=== PATIENT | male | born 1950 | race Caucasian/White ===

== ENCOUNTER 2021-05-15 08:54 | Outpatient (CLI) | payer MEDICARE, SELFPAY | END 2021-05-15 08:55 | disposition home or self-care (01) | LOC: ANHAUDASC 08:56 | PROVIDERS: PCP Family Medicine; Visit Provider Otolaryngology | DX: H93.19 Tinnitus, unspecified ear (principal) | CPT/HCPCS: 92557; 92567 ==

== ENCOUNTER → 2022-04-10 13:31 | Outpatient (CLI) | payer MEDICARE, SELFPAY ==
--- NOTE | ~2022-04-10 | XR_ITS ---
XR knee RT min 4V 04/10/2022 14:11 Indication: Right knee pain Procedure: 4 views right knee Comparison: No prior studies for comparison. Findings: There is tricompartment osteoarthritis of the right knee, most severe in the medial compart ment. Small joint effusion. No acute fracture or traumatic malalignment. Impression: 1: Tricompartment osteoarthritis of the right knee, most severe in the medial compartment. 2: Small joint effusion. Reviewed, dictated and finalized at location A. Impression: 1: Tricompartment osteoarthritis of the right knee, most severe in the medial c ompartment. 2: Small joint effusion.
--- NOTE | ~2022-04-10 | XR_ITS ---
XR hand RT min 3V 04/10/2022 14:11 Indication: There is stiffness of the right hand Procedure: 3 views right hand Comparison: No prior studies for comparison. Findings: There is mild-moderate polyarticular osteoarthritis including the triscaphe joint, first CM C and MCP joints, multiple interphalangeal joints as well as the second and third MCP joints. No acut e fracture or traumatic malalignment. No focal soft tissue abnormality. No foreign bodies. No erosive changes. 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 Reviewed, dictated and finalized at location A. 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
--- NOTE | ~2022-04-10 | XR_ITS ---
XR hand LT min 3V 04/10/2022 14:11 Indication: Stiffness of the left hand Procedure: 3 views left hand Comparison: Left wrist series dated 05/02/2008 Findings: There is mild-moderate polyarticular osteoarthritis including the triscaphe joint, first CM C and MCP joints, multiple interphalangeal joints as well as the second and third MCP joints. No acut e fracture or traumatic malalignment. No focal soft tissue abnormality. No foreign bodies. No erosive changes. 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 Reviewed, dictated and finalized at location A. 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
== END ==
PROVIDERS: PCP Family Medicine; Visit Provider Family Medicine
DX: M19.041 Primary osteoarthritis, right hand (principal); M19.031 Primary osteoarthritis, right wrist; M19.042 Primary osteoarthritis, left hand; M19.032 Primary osteoarthritis, left wrist; M17.11 Unilateral primary osteoarthritis, right knee
CPT/HCPCS: 73130; 73564

== ENCOUNTER 2024-02-04 08:34 | Outpatient (CLI) | payer MEDICARE, SELFPAY ==
[2024-02-04 13:27] LABS: Hematocrit 43.9 % (42.0-52.0); Hemoglobin 14.4 g/dL (14.0-18.0); Mean Corpuscular HGB Conc 32.8 g/dl (32-36); Mean Corpuscular Hemoglobin 29.4 pg (26-34); Mean Corpuscular Volume 89.8 fl (80-100); Platelet Count Result 217 k/mm3 (150-375); Red Blood Count 4.89 M/mm3 (4.6-6.20); Red Cell Distribution Width 13.1 % (11.5-14.5); White Blood Count 5.7 K/mm3 (4.5-10.0)
[2024-02-04 14:01] LABS: LDL Cholesterol Direct 118 mg/dL
[2024-02-04 14:02] LABS: Prostate Specific Antigen 8.3 ng/mL (< OR = 4.0)
[2024-02-04 14:23] LABS: Alanine Aminotransferase 28 U/L (6-50); Albumin Level 4.4 g/dL (3.5-5.1); Alkaline Phosphatase 59 U/L (38-126); Anion Gap 7 mmol/L (4-12); Aspartate Amino Transferase 70 U/L (17-59); Bilirubin,Total 0.8 mg/dL (0.2-1.3); Blood Urea Nitrogen 14 mg/dL (9-20); Calcium 9.2 mg/dL (8.4-10.2); Carbon Dioxide 25 mmol/L (22-30); Chloride 104 mmol/L (98-107); Cholesterol 175 mg/dL (0-200); Estimated Glomerular Filt Rate > 60; Glucose 131 mg/dL (65-110); HDL Direct 42 mg/dL; Potassium 4.3 mmol/L (3.4-5.0); Sodium 136 mmol/L (137-145); Triglycerides 91 mg/dL (<150)
== END 2024-02-04 08:35 | disposition home or self-care (01) ==
PROVIDERS: Nurse Practitioner; PCP Family Medicine; Visit Provider Urology
DX: C61 Malignant neoplasm of prostate (principal); I10 Essential (primary) hypertension; R73.03 Prediabetes
CPT/HCPCS: 36415; 80053; 80061; 83036; 84153; 84443; 85027

== ENCOUNTER 2024-03-08 15:09 | Outpatient (CLI) | payer MEDICARE, SELFPAY ==
--- NOTE | ~2024-03-08 | XR_ITS ---
EXAM: XR finger 2nd LT min 2V DATE: 03/08/2024 15:21 HISTORY: M25.449 - Effusion, unspecified hand . COMPARISON: None available. FINDINGS: Normal mineralization. No fracture or dislocation. No lytic or blastic lesion. Scattered a rthritic changes typical of osteoarthritis, most pronounced in the third MCP joint. No erosion or per iosteal change. 1.5 cm ovoid area of soft tissue swelling lateral to the second PIP joint. No radiopa que foreign body or soft tissue gas. IMPRESSION: Focal soft tissue swelling lateral to the second DIP joint. No radiopaque foreign body or subcutaneous emphysema. Reviewed, dictated and finalized at location K. IMPRESSION: Focal soft tissue swelling lateral to the second DIP joint. No radi opaque foreign body or subcutaneous emphysema.
== END 2024-03-08 15:10 ==
PROVIDERS: PCP Family Medicine; Visit Provider Nurse Practitioner
DX: M25.442 Effusion, left hand (principal)
CPT/HCPCS: 73140

== ENCOUNTER 2024-06-13 08:01 | Outpatient (CLI) | payer MEDICARE, SELFPAY ==
--- NOTE | ~2024-06-13 | XR_ITS ---
Right Hand Technique: PA, oblique, and lateral views were obtained. Clinical History: Pain Findings: No acute fracture or dislocation is seen. Osseous alignment is anatomic. There is mild dege nerative change of the second and third MCP joints. There is mild degenerative change of the interpha langeal joint of the thumb.. Soft tissues are unremarkable. Impression: Mild degenerative changes, as above. Reviewed, dictated and finalized at location M. Impression: Mild degenerative changes, as above.
--- NOTE | ~2024-06-13 | XR_ITS ---
Right Knee Technique: AP, lateral, and sunrise views were obtained. Clinical History: Pain Findings: No fracture or dislocation is seen. There is probable mild medial compartment narrowing wit h mild tricompartmental osteophyte formation. Probable loose bodies posteriorly, possibly within a Ba ker's cyst. No joint effusion is seen. Impression: Moderate tricompartmental degenerative change. Probable loose bodies posteriorly within the Smith's cyst. Reviewed, dictated and finalized at location M. Impression: Moderate tricompartmental degenerative change. Probable loose bodies posteriorly within the Smith's cyst.
== END 2024-06-13 08:02 | disposition home or self-care (01) ==
PROVIDERS: PCP Nurse Practitioner; Visit Provider Nurse Practitioner
DX: M19.041 Primary osteoarthritis, right hand (principal); M17.11 Unilateral primary osteoarthritis, right knee
CPT/HCPCS: 73130; 73562

== ENCOUNTER 2024-08-03 10:30 | Outpatient (CLI) | payer MEDICARE, SELFPAY ==
[2024-08-03 18:58] LABS: Alanine Aminotransferase 27 U/L (6-50); Albumin Level 4.1 g/dL (3.5-5.1); Alkaline Phosphatase 45 U/L (38-126); Anion Gap 5 mmol/L (4-12); Aspartate Amino Transferase 62 U/L (17-59); Bilirubin,Total 0.8 mg/dL (0.2-1.3); Blood Urea Nitrogen 13 mg/dL (9-20); Calcium 9.2 mg/dL (8.4-10.2); Carbon Dioxide 29 mmol/L (22-30); Chloride 103 mmol/L (98-107); Cholesterol 180 mg/dL (0-200); Estimated Glomerular Filt Rate > 60; Glucose 112 mg/dL (65-110); HDL Direct 41 mg/dL; Potassium 4.6 mmol/L (3.4-5.0); Sodium 137 mmol/L (137-145); Triglycerides 102 mg/dL (<150)
[2024-08-03 19:09] LABS: LDL Cholesterol Direct 103 mg/dL
[2024-08-03 21:35] LABS: Hemoglobin A1C 6.2 % (<5.7)
== END 2024-08-03 10:31 | disposition home or self-care (01) ==
LOC: ANHGOSHLAB 10:31
PROVIDERS: PCP Nurse Practitioner; Visit Provider Nurse Practitioner
DX: E78.2 Mixed hyperlipidemia (principal); R73.03 Prediabetes; C61 Malignant neoplasm of prostate
CPT/HCPCS: 36415; 80053; 80061; 83036; 84153

== ENCOUNTER 2024-11-08 08:11 | Outpatient (CLI) | payer MEDICARE, SELFPAY ==
--- OUTSIDE RECORDS SUMMARY | 2024-11-08 08:22 | XMS_ITS | Patient Health Summary ---
Author Organization [facility] [employer] Address [address] [place] [address] Care Team Providers Care Aircraft Worker Name Role Phone Yoni Molina MD Primary Care Provider [phone] [facility],non-owned Affiliates and Associated Physician Practices is amultiple site organization consisting of ambulatory clinics and hospital sitesin [place], [place], [place] and [place]. This disclosure is being madepursuant to the Care Everywhere program and may not contain all information available regarding this patient. Last updated 18.[facility] Medications * Be aware that medications may not be up to date on this document. Alwaysverify current medications with the patient. * pyridoxine 25 MG tablet(Started 04/13/2017) Take by mouth. * Cyanocobalamin (VITAMIN B-12) 50 MCG(Started 04/13/2017) Take by mouth. * esomeprazole (NEXIUM) 20 MG capsule(Started 04/13/2017) Take by mouth. * coenzyme Q10 30 MG capsule(Started 04/13/2017) Take by mouth. * atorvastatin (LIPITOR) 10 MG tablet(Started 04/13/2017) Take by mouth. Social History Tobacco Use Types Packs/Day Years Used Date Smoking Tobacco: Former Smokeless Tobacco: Never Alcohol Use Standard Drinks/Week Comments Yes 0 (1 standard drink = 0.6 oz pur e alcohol) Sex and Gender Information Value Date Recorded Sex Assigned at Not on file Gender Identity Not on file Sexual Orientation Not on file Last Filed Vital Signs Vital Sign Reading Time Taken Comments Blood Pressure 158/90 08/10/2017 2:17 PM RECONCILIATION SPECIALIST Pulse 56 08/10/2017 2:17 PM RECONCILIATION SPECIALIST Temperature - - Respiratory Rate - - Oxygen Saturation 98% 08/10/2017 2:17 PM RECONCILIATION SPECIALIST Inhaled Oxygen Concentration - - Weight 94.3 kg (208 lb) 08/10/2017 1:11 PM RECONCILIATION SPECIALIST Height 180.3 cm (5' 11 ) 08/10/2017 1:11 PM RECONCILIATION SPECIALIST Body Mass Index 29.01 08/10/2017 1:11 PM RECONCILIATION SPECIALIST Procedures * DERMATOPATHOLOGY(Performed 12/31/2021) * DERMATOPATHOLOGY(Performed 09/14/2018) * DERMATOPATHOLOGY(Performed 02/15/2018) * DERMATOPATHOLOGY(Performed 08/10/2017) * DERMATOPATHOLOGY(Performed 07/21/2017) * DERMATOPATHOLOGY(Performed 04/22/2017) * DERMATOPATHOLOGY(Performed 03/05/2017) Results * DERMATOPATHOLOGY (12/31/2021 12:00 AM CDT) Only the most recent of7 resultswithin the time period is included. Case Report Dermatopathology Report Case: [id number] Authorizing Provider: Denny Santana MD Collected: 12/31/2021 12:00 AM Ordering Location: [facility] DermPath Lab Received: 01/01/2022 11:50 AM Pathologist: Mónica Corona MD Specimen: Skin, sup left breast at sternum 2 3:53 PM CDT DERMATOPATHOLOGY LABORATORY Final Diagnosis Specimen A. SKIN, sup left breast at sternum: JUNCTIONAL MELANOCYTIC NEVUS, IRRITATED (D22.5) POST-INFLAMMATORY PIGMENT ALTERATION (L81.9) 2 3:53 PM CDT DERMATOPATHOLOGY LABORATORY Clinical History R/O SK vs. Dysplastic Nevus. 2 3:53 PM CDT DERMATOPATHOLOGY LABORATORY Gross Description Specimen A: Received is one formalin filled container labeled with the patients name and designated sup left breast at sternum. The specimen consists of a shave removal measuring [id number]. Jar 0. 2 3:53 PM CDT DERMATOPATHOLOGY LABORATORY Microscopic Description Specimen A. SKIN, sup left breast at sternum: This is a junctional nevus. There is melanin pigment in the stratum corneum. There is architectural disorder characterized by a lentiginous proliferation of melanocytes between irregular nests of cells along the dermal-epidermal junction. There is underlying fibroplasia of the papillary dermis. (Junctional Derrick's Nevus or Junctional Dysplastic Nevus) Sections show abundant melanin within melanophages around the superficial vascular plexus. 2 3:53 PM CDT DERMATOPATHOLOGY LABORATORY Disclaimer An external and internal positive and negative controls are appropriate for the histochemical, immunohistochemical and immunofluorescence stain(s) in this case (if any), except where stated explicitly. The performance characteristics of the stain(s) cited in this report were developed and its performance characteristic determined by the Dermatopathology Laboratory at [facility], directed by Dr. Francisco Corona. These tests need not be, and therefore are not, approved by the [place] Food and Drug Administration. The tests are used for clinical purposes. Billing Codes Specimen Charges Stain Charges 92285 1 2 3:53 PM CDT DERMATOPATHOLOGY LABORATORY Embedded Images 2 3:53 PM CDT DERMATOPATHOLOGY LABORATORY Pathology/Cytolog y TISSUE SPECIMEN FROM SKIN / Unknown 12/31/2021 01/01/2022 11:50 AM CDT Denny Santana MD LAB - PATHOLOGY/CYTO LOGY ORDERABLES DERMATOPATHOLOGY LABORATORY [facility] - Department of Dermatology [facility] Medicine [address] [place] [address], [address] [phone] Care Teams Aircraft Worker Relationship Specialty Start Date End Date Yoni Molina MD [address] [place] [address] PCP - General 04/07/17
--- OUTSIDE RECORDS SUMMARY | 2024-11-08 08:22 | XMS_ITS | Encounter Summary ---
Author Organization [facility] Address [address] [place] [address] Care Team Providers Care Correctional Therapy Teacher Name Role Phone Yoni Molina MD Primary Care Provider [phone] Encounter Details Date Type Department Care Team (Late st Contact Info) Description 09/15/2018 Lab Requisition [facility] Care DermPath Lab [address] [place] [id number] Denny Santana MD [address] [place] [address] Social History Tobacco Use Types Packs/Day Years Used Date Smoking Tobacco: Former Smokeless Tobacco: Never Alcohol Use Standard Drinks/Week Comments Yes 0 (1 standard drink = 0.6 oz pur e alcohol) Sex and Gender Information Value Date Recorded Sex Assigned at Not on file Gender Identity Not on file Sexual Orientation Not on file documented as of this encounter Plan of Treatment Not on file documented as of this encounter Procedures Procedure Name Priority Date/Time Associated Diagnosis Comments DERMATOPATHOLOGY Routine 09/14/2018 12:0 0 AM PALLETIZER OPERATOR documented in this encounter Results * DERMATOPATHOLOGY (09/14/2018 12:00 AM PALLETIZER OPERATOR) Case Report Dermatopathology Report Case: [id number] Authorizing Provider: Denny Santana MD Collected: 09/14/2018 12:00 AM Pathologist: Kelle Watkins MD Received: 09/15/2018 12:02 PM Specimens: A) - Skin, right upper breast B) - Skin, left upper breast 2:06 PM [facility] DERMATOPATHOLOGY LABORATORY Final Diagnosis Specimen A. SKIN, right upper breast: LENTIGINOUS MELANOCYTIC NEVI, COMPOUND TYPE, IRRITATED (COMPOUND MELANOCYTIC NEVI WITH ARCHITECTURAL DISORDER) (D22.5) (see microscopic description and comment) Specimen B. SKIN, left upper breast: LENTIGINOUS MELANOCYTIC NEVUS, COMPOUND TYPE, IRRITATED (COMPOUND MELANOCYTIC NEVUS WITH ARCHITECTURAL DISORDER) (D22.5) CHRONIC PERIFOLLICULITIS (L73.8) (see microscopic description) 2:06 PM [facility] DERMATOPATHOLOGY LABORATORY Clinical History A-B: R/O dys nevus. 2:06 PM [facility] DERMATOPATHOLOGY LABORATORY Gross Description Specimen A: Received is one formalin filled container labeled with the patient's name and designated right upper breast. The specimen consists of a shave biopsy measuring [id number]. Jar 0. Specimen B: Received is one formalin filled container labeled with the patient's name and designated left upper breast. The specimen consists of a shave biopsy measuring [id number]. Jar 0. 2:06 PM [facility] DERMATOPATHOLOGY LABORATORY Microscopic Description Specimen A. SKIN, right upper breast: Sections show a broad shave with what appears to be two adjacent melanocytic nevi from one another by unremarkable epidermis and dermis. Each shows evidence of irritation with melanin pigment within the stratum corneum. There is architectural disorder characterized by a lentiginous proliferation of melanocytes between irregular nests of cells along the dermal-epidermal junction, highlighted by MART-1/Melan-A immunohistochemical staining. There is underlying fibroplasia of the papillary dermis. The intradermal component is bland appearance and matures with depth. Original and deeper sections were reviewed. (Compound Derrick's Nevi or Compound Dysplastic Nevi) COMMENT: The histologic findings suggest two adjacent melanocytic nevi or in the correct clinical setting a speckled nevus (nevus spilus). Clinicopathologic correlation is recommended. Specimen B. SKIN, left upper breast: This is a compound nevus. There is melanin pigment within the stratum corneum. There is architectural disorder characterized by a lentiginous proliferation of melanocytes between irregular nests of cells along the dermal-epidermal junction, highlighted by MART-1/Melan-A immunohistochemical staining. There is underlying fibroplasia of the papillary dermis with scattered melanophages. The intradermal component is bland appearance and matures with depth. Original and deeper sections were reviewed. (Compound Derrick's Nevus or Compound Dysplastic Nevus) There is also show a perifollicular lymphohistiocytic infiltrate. 9 2:06 PM [facility] DERMATOPATHOLOGY LABORATORY Disclaimer An external and internal positive and negative controls are appropriate for the histochemical, immunohistochemical and immunofluorescence stain(s) in this case (if any), except where stated explicitly. The performance characteristics of the stain(s) cited in this report were developed and its performance characteristic determined by the Dermatopathology Laboratory at [facility]. These tests need not be, and therefore are not, approved by the [place] Food and Drug Administration. The tests are used for clinical purposes. Billing Codes Specimen Charges Stain Charges 22838 79849 1 1 33537 04485 1 1 9 2:06 PM [facility] DERMATOPATHOLOGY LABORATORY Embedded Images 9 2:06 PM [facility] DERMATOPATHOLOGY LABORATORY Pathology/Cytology TISSUE SPECIMEN FROM SKIN / Unknown 09/14/2018 09/15/2018 12:02 PM PALLETIZER OPERATOR Miscellaneous samples (specimen) TISSUE SPECIMEN FROM SKIN / Unknown 09/14/2018 09/15/2018 12:02 PM PALLETIZER OPERATOR Denny Santana MD LAB - PATHOLOGY/CYTO LOGY ORDERABLES DERMATOPATHOLOGY LABORATORY [facility] - Department of Dermatology [address] [place] [address], [address]th Floor Lab [address] [phone] documented in this encounter Visit Diagnoses Not on filedocumented in this encounter Care Teams Correctional Therapy Teacher Relationship Specialty Start Date End Date Yoni Molina MD [address] [place] [address] PCP - General 04/07/17 documented as of this encounter
--- OUTSIDE RECORDS SUMMARY | 2024-11-08 08:22 | XMS_ITS | Referral Summary ---
Author Organization [facility] [employer] Address [address] [place] [address] Care Team Providers Care Editor Managing Newspaper Name Role Phone Yoni Molina MD Primary Care Provider [phone] Source Comments [facility] [employer],non-owned Affiliates and Associated Physician Practices is amultiple site organization consisting of ambulatory clinics and hospital sitesin [place], [place], [place] and [place]. This disclosure is being madepursuant to the Care Everywhere program and may not contain all information available regarding this patient. Last updated 18.[facility] [employer] Medications * Be aware that medications may not be up to date on this document. Alwaysverify current medications with the patient. Medication Sig Dispensed Refills Start Date End Date Status pyridoxine 25 MG tablet Take by mouth. 04/13/2017 Active Cyanocobalamin (VITAMIN B-12) 50 MCG Take by mouth. 04/13/2017 Active esomeprazole (NEXIUM) 20 MG capsule Take by mouth. 04/13/2017 Active coenzyme Q10 30 MG capsule Take by mouth. 04/13/2017 Active atorvastatin (LIPITOR) 10 MG tablet Take by mouth. 04/13/2017 Active Social History Tobacco Use Types Packs/Day Years [...] Comments Blood Pressure 158/90 08/10/2017 2:17 PM MINERAL ECONOMIST Pulse 56 08/10/2017 2:17 PM MINERAL ECONOMIST Temperature - - Respiratory Rate - - Oxygen Saturation 98% 08/10/2017 2:17 PM MINERAL ECONOMIST Inhaled Oxygen Concentration - - Weight 94.3 kg (208 lb) 08/10/2017 1:11 PM MINERAL ECONOMIST Height 180.3 cm (5' 11 ) 08/10/2017 1:11 PM MINERAL ECONOMIST Body Mass Index 29.01 08/10/2017 1:11 PM MINERAL ECONOMIST Plan of Treatment Not on file Care Teams Editor Managing Newspaper Relationship Specialty Start Date End Date Yoni Molina MD [address] [place] [phone] PCP - General 04/07/17
--- OUTSIDE RECORDS SUMMARY | 2024-11-08 08:22 | XMS_ITS | Clinical Summary ---
Author Organization [facility] Address [address] [address] Care Team Providers Care Medical Director Of Hospice Name Role Phone Yoni Molina MD Primary Care Provider [phone] Source Comments [facility],non-owned Affiliates and Associated Physician Practices is amultiple site organization consisting of ambulatory clinics and hospital sitesin [place], [place], [place] and [place]. This disclosure is being madepursuant to the Care Everywhere program and may not contain all information available regarding this patient. Last updated 18.[facility] Medications * Be aware that medications may [...] MG tablet Take by mouth. 04/13/2017 Active Family History Medical History Relation Name Comments Cancer - Skin, Melanoma Father Cancer - Skin, Melanoma Mother Relation Name Status Comments Father Mother Social History Tobacco Use Types Packs/Day Years [...] Comments Blood Pressure 158/90 08/10/2017 2:17 PM BOWL TOPPER Pulse 56 08/10/2017 2:17 PM BOWL TOPPER Temperature - - Respiratory Rate - - Oxygen Saturation 98% 08/10/2017 2:17 PM BOWL TOPPER Inhaled Oxygen Concentration - - Weight 94.3 kg (208 lb) 08/10/2017 1:11 PM BOWL TOPPER Height 180.3 cm (5' 11 ) 08/10/2017 1:11 PM BOWL TOPPER Body Mass Index 29.01 08/10/2017 1:11 PM BOWL TOPPER Plan of Treatment Health Maintenance Due Date Last Done Comments COLOGUARD (AGES 45-75) - COL ON CA SCREENING 1952 COLON MONITORING 1952 COLONOSCOPY - COLON CA SCREENING 1952 CT COLONOGRAPHY - COLON CA SCREENING 1950 Colorectal Cancer Screening 1952 FIT - COLON CA SCREENING 1952 FLEX SIG - COLON CA SCREENING 1952 HEPATITIS C SCREENING 08/22/1970 DTAP/TDAP/TD VACCINES (1 - Tdap) 1971 PNEUMOCOCCAL VACCINE 50+ (1 of 1 - PCV) 2002 ZOSTER VACCINE (1 of 2) 2002 AAA SCREENING 2017 COVID-19 VACCINE ( - 2023-2 5 season) 2024 INFLUENZA VACCINE (#1) 2024 DEPRESSION SCREENING 09/13/2024 MEDICARE AWV CALENDAR YEAR 2024 Respiratory Syncytial Virus (RSV) Vaccine Pt: or over 60 yrs (1 - 1-dose 75+ series) 2027 HEPATITIS B VACCINE Aged Out No longe r eligible based on patient's age to complete this topic HIB VACCINE Aged Out No longer eligi ble based on patient's age to complete this topic HPV VACCINE Aged Out No longer eligi ble based on patient's age to complete this topic MENINGOCOCCAL (Group B) VACCINE Aged Out No longer eligible based on patient's age to complete this topic MENINGOCOCCAL VACCINE Aged Out No hayde jordin eligible based on patient's age to complete this topic Care Teams Medical Director Of Hospice Relationship Specialty Start Date End Date Yoni Molina MD [address] [place] [phone] PCP - General 04/07/17
--- OUTSIDE RECORDS SUMMARY | 2024-11-08 08:22 | XMS_ITS | Encounter Summary ---
Author Organization [facility] Address [address] [place] [address] Care Team Providers Care Biochemistry Specialist Name Role Phone Harleen George DO Primary Care Provider Encounter Details Date Type Department Care Team (Latest Contact Info) Description 01/28/2023 [employer] [facility] - [address], [address] [place] [address] [email or web address] Provider follow up appointment Social History Tobacco Use Types Packs/Day Years Used Date Smoking Tobacco: Never Smokeless Tobacco: Never Alcohol Use Standard Drinks/Week Comments Yes 3.3 (1 standard drink = 0.6 oz p ure alcohol) 2/nite PHQ-2 Answer Date Recorded PHQ-2 Score - If the patient scores above 3, please move on to questions 3-9 0 10/03/2021 Sex and Gender Information Value Date Recorded Sex Assigned at Not on file Legal Sex Male 7:50 PM CDT Gender Identity Male 10/09/2021 9:37 AM FINAL ASSEMBLY WORKER Sexual Orientation Not on file documented as of this encounter Plan of Treatment Not on file documented as of this encounter Visit Diagnoses Not on filedocumented in this encounter Additional Health Concerns Assessment Noted Time PHQ-9 Depression Total Score: 0 10/03/19 22 3:11 PM FINAL ASSEMBLY WORKER documented as of this encounter Care Teams Biochemistry Specialist Relationship Specialty Start Date End Date Harleen George DO [address] [place] [address] PCP - General FAMILY PRACTICE 05/02/20 documented as of this encounter
--- OUTSIDE RECORDS SUMMARY | 2024-11-08 08:22 | XMS_ITS | Encounter Summary ---
Author Organization [facility] Address [address] [place] [address] Care Team Providers Care Quality Compliance Consultant Name Role Phone Yoni Molina MD Primary Care Provider [phone] Encounter Details Date Type Department Care Team (Late st Contact Info) Description 02/16/2018 Lab Requisition [facility] Care DermPath Lab [address] [facility], [place] [phone] Denny Santana MD [address] [place] [address] Social History Tobacco Use Types [...] Priority Date/Time Associated Diagnosis Comments DERMATOPATHOLOGY Routine 02/15/2018 12:0 0 AM CDT documented in this encounter Results * DERMATOPATHOLOGY (02/15/2018 12:00 AM CDT) Case Report Dermatopathology Report Case: [id number] Authorizing Provider: Denny Santana MD Collected: 02/15/2018 12:00 AM Pathologist: Mónica Corona MD Received: 02/16/2018 12:22 PM Specimens: A) - Skin, left mid back B) - Skin, right lateral mid back 4:58 PM [facility] DERMATOPATHOLOGY LABORATORY Final Diagnosis Specimen A. SKIN, left mid back: LENTIGINOUS MELANOCYTIC NEVUS, COMPOUND TYPE, IRRITATED (COMPOUND MELANOCYTIC NEVUS WITH ARCHITECTURAL DISORDER) (D22.5) NOT PRESENT AT SAMPLED MARGIN Specimen B. SKIN, right lateral mid back: COMPOUND NEVUS WITH CONGENITAL FEATURES (D22.5) APPROXIMATES MARGIN 4:58 PM [facility] DERMATOPATHOLOGY LABORATORY Clinical History A-B: R/O dys nevus. Check margins. 4:58 PM [facility] DERMATOPATHOLOGY LABORATORY Gross Description Specimen A: Received is one formalin filled container labeled with the patient's name and designated left mid back. The specimen consists of a shave biopsy measuring [id number], the margin is inked green. Jar 0. Specimen B: Received is one formalin filled container labeled with the patient's name and designated right lateral mid back. The specimen consists of a shave biopsy measuring [id number], the margin is inked green. Jar 0. 4:58 PM [facility] DERMATOPATHOLOGY LABORATORY Microscopic Description Specimen A. SKIN, left mid back: This is a compound nevus. There is melanin pigment in the [...] (Compound Derrick's Nevus or Compound Dysplastic Nevus) This lesion is not present at the sampled margin of the specimen. Specimen B. SKIN, right lateral mid back: There are nests of melanocytes at the dermal-epidermal junction and within the dermis. Some melanocytes are splayed between collagen bundles and are localized around adnexal structures. This lesion approximates the margin of the specimen. 4:58 PM [facility] DERMATOPATHOLOGY LABORATORY Disclaimer An external and internal positive and negative controls are appropriate for the histochemical, immunohistochemical and immunofluorescence stain(s) in this case (if any), except where stated explicitly. The performance characteristics of the stain(s) cited in this report were developed and its performance characteristic determined by the Dermatopathology Laboratory at [facility]. These tests need not be, and therefore are not, approved by the [place] Food and Drug Administration. The tests are used for clinical purposes. Billing Codes Specimen Charges Stain Charges 30673 90483 1 1 24077 1 8 4:58 PM CDT DERMATOPATHOLOGY LABORATORY Embedded Images 8 4:58 PM CDT DERMATOPATHOLOGY LABORATORY Pathology/Cytology TISSUE SPECIMEN FROM SKIN / Unknown 02/15/2018 02/16/2018 12:22 PM CDT Miscellaneous samples (specimen) TISSUE SPECIMEN FROM SKIN / Unknown 02/15/2018 02/16/2018 12:22 PM CDT Denny Santana MD LAB - PATHOLOGY/CYTO LOGY ORDERABLES DERMATOPATHOLOGY LABORATORY [facility] - Department of Dermatology [address] [place] [address] 5th Floor Lab [address] [phone] documented in this encounter Visit Diagnoses Not on filedocumented in this encounter Care Teams Quality Compliance Consultant Relationship Specialty Start Date End Date Yoni Molina MD [address] [place] [address] PCP - General 04/07/17 documented as of this encounter
--- OUTSIDE RECORDS SUMMARY | 2024-11-08 08:22 | XMS_ITS | Clinical Summary ---
Author Organization [facility] Address [address] [place] [address] Care Team Providers Care Vault Attendant Name Role Phone Harleen George DO Primary Care Provider [phone] Allergies No known active allergies Medications atorvastatin 10 MG tablet 04/16/2020 Active lisinopril 2.5 MG tablet Take 1 tablet (2.5 mg total) by mouth daily. 07/14/2021 Active esomeprazole (NEXIUM) 40 MG capsuleIndicatio ns:Gastroesophag eal reflux disease, unspecified whether esophagitis present Take 1 capsule (40 mg total) by mouth daily. 90 capsule 3 04/14/2024 04/14/20 25 Active tiZANidine (ZANAFLEX) 4 MG tablet Take 1 tablet (4 mg total) by mouth nightly at bedtime. 06/30/2024 Active Active Problems Problem Noted Date Diagnosed Date Gastroesophageal reflux dise ase, unspecified whether esophagitis present 04/14/2024 Esophageal dysphagia 10/06/2021 Overview (10/06/2021): Added automatically from request for surgery [id number] Esophageal stricture 10/06/2021 Overview (10/06/2021): Added automatically from request for surgery [id number] Resolved Problems Problem Noted Date Diagnosed Date Resolved Date Screening for colon cancer 04/18/2024 0 04/24/2024 Screening for colon cancer 04/18/2024 0 06/05/2024 Screening for colon cancer 04/18/2024 1 Screening for colon cancer 04/18/2024 1 Screening for malignant neoplasm of colon 04/14/2024 04/24/2024 Encounters Date Type Department Care Team Description 08/14/2024 1:20 PM CUSTOMER SUPPORT SPECIALIST Office Visit [facility] - [place] [address] [place] [address] Mamadou Muñoz MD New Patient (Right knee) 08/14/2024 Travel from Last 3 Months Family History Medical History Relation Comments No Known Problems Father No Known Problems Maternal Aunt No Known Problems Maternal Grandmother No Known Problems Maternal Uncle No Known Problems Mother No Known Problems Paternal Aunt No Known Problems Paternal Grandfather No Known Problems Paternal Grandmother No Known Problems Paternal Uncle Relation Status Comments Father Alive Maternal Aunt Maternal Grandmother Maternal Uncle Mother Paternal Aunt Paternal Grandfather Paternal Grandmother Paternal Uncle Social History Tobacco Use Types Packs/Day Years Used Date Smoking Tobacco: Never Smokeless Tobacco: Never Tobacco Cessation:Counseling Given: No Alcohol Use Standard Drinks/Week Comments Yes 23.3 (1 standard drink = 0.6 oz pure alcohol) 2 beers daily PHQ-2 Answer Date Recorded Patient Health Questionnaire-2 Score 0 08/14/2024 Sex and Gender Information Value Date Recorded Sex Assigned at Not on file Legal Sex Male 7:50 PM CDT Gender Identity Male 10/09/2021 9:37 AM CUSTOMER SUPPORT SPECIALIST Sexual Orientation Not on file Last Filed Vital Signs Vital Sign Reading Time Taken Comments Blood Pressure 153/78 08/14/2024 1:22 PM CUSTOMER SUPPORT SPECIALIST Pulse 52 08/14/2024 1:22 PM CUSTOMER SUPPORT SPECIALIST Temperature 37 C (98.6 F) 08/14/2024 1:22 PM CUSTOMER SUPPORT SPECIALIST Respiratory Rate 16 06/30/2024 11:3 0 AM CDT Oxygen Saturation 100% 06/30/2024 11: 30 AM CDT Inhaled Oxygen Concentration - - Weight 103.6 kg (228 lb 6.4 oz) 08/14/2024 1:22 PM CUSTOMER SUPPORT SPECIALIST Height 180.3 cm (5' 11 ) 08/14/2024 1:22 PM CUSTOMER SUPPORT SPECIALIST Body Mass Index 31.86 08/14/2024 1:22 PM CUSTOMER SUPPORT SPECIALIST Plan of Treatment Health Maintenance Due Date Last Done Comments Hepatitis C 1970 Zoster Vaccines (1 of 2) 2002 Annual Medicare Wellness Visit 2017 COVID-19 Vaccine (2 - 2023-2 5 season) 2024 06/20/2021 Influenza Adult (#1) 2024 07/08/2018 PHQ-2 (Physician [place]) 09/13/2024 08/14/2024 PHQ-2 (Physician [place]) 08/14/2025 08/14/2024 RSV Immunization or 60+ Years (1 - 1-dose 75+ series) 2027 DTaP, Tdap and Td Vaccines ( 2 - Td or Tdap) 06/05/2029 06/05/2019 Colorectal Cancer Screening Colonoscopy (10 Years) 06/30/2034 06/30/2024 Pneumococcal Vaccine: 65+ Years Completed 06/05/2019, 02/21/2018 Meningococcal B Vaccine Aged Out No l onger eligible based on patient's age to complete this topic Meningococcal Vaccine Aged Out No hayde jordin eligible based on patient's age to complete this topic RSV Immunizations Under 20 Months Aged Out No longer eligible b ased on patient's age to complete this topic Insurance [facility] Care Teams Vault Attendant Relationship Specialty Start Date End Date Harleen George DO [address] [place] [address] PCP - General FAMILY PRACTICE 05/02/20
--- OUTSIDE RECORDS SUMMARY | 2024-11-08 08:22 | XMS_ITS | Encounter Summary ---
Author Organization [facility] Address [address] [facility] [place] [address] Care Team Providers Care Multimedia Programmer Name Role Phone Yoni Molina MD Primary Care Provider [phone] Encounter Details Date Type Department Care Team (Late st Contact Info) Description 01/01/2022 Lab Requisition [facility] DermPath Lab [address] [facility] [place] [phone] Denny Santana MD [address] [place] [address] Social History Tobacco Use Types [...] Priority Date/Time Associated Diagnosis Comments DERMATOPATHOLOGY Routine 12/31/2021 12:0 0 AM CDT documented in this encounter Results * DERMATOPATHOLOGY (12/31/2021 12:00 AM CDT) Case Report Dermatopathology Report Case: [id number] Authorizing Provider: Denny Santana MD Collected: 12/31/2021 12:00 AM Ordering Location: [facility] DermPath Lab Received: 01/01/2022 11:50 AM Pathologist: [...] specimen consists of a shave removal measuring [id number]. Jar 0. 3:53 PM CDT DERMATOPATHOLOGY LABORATORY Microscopic Description [...] characteristic determined by the Dermatopathology Laboratory at [facility], directed by Dr. Francisco oCrona. These tests need not be, and therefore are not, approved by the [place] Food and Drug Administration. The tests are used for clinical purposes. Billing Codes Specimen Charges Stain Charges 91973 1 2 3:53 PM CDT DERMATOPATHOLOGY LABORATORY Embedded Images 2 3:53 PM CDT DERMATOPATHOLOGY LABORATORY Pathology/Cytolog y TISSUE SPECIMEN FROM SKIN / Unknown 12/31/2021 01/01/2022 11:50 AM CDT Denny Santana MD LAB - PATHOLOGY/CYTO LOGY ORDERABLES DERMATOPATHOLOGY LABORATORY [facility] - Department of Dermatology [address], 3rd [address] [phone] documented in this encounter Visit Diagnoses Not on filedocumented in this encounter Care Teams Multimedia Programmer Relationship Specialty Start Date End Date Yoni Molina MD [address] [place] [address] PCP - General 04/07/17 documented as of this encounter
[2024-11-08 11:58] LABS: Anion Gap 7 mmol/L (4-12); Blood Urea Nitrogen 11 mg/dL (9-20); Carbon Dioxide 28 mmol/L (22-30); Chloride 102 mmol/L (98-107); Potassium 4.3 mmol/L (3.4-5.0); Sodium 137 mmol/L (137-145)
[2024-11-08 11:59] LABS: Alanine Aminotransferase 32 U/L (6-50); Albumin Level 3.9 g/dL (3.5-5.1); Alkaline Phosphatase 52 U/L (38-126); Aspartate Amino Transferase 38 U/L (17-59); Bilirubin,Total 0.8 mg/dL (0.2-1.3); Calcium 9.1 mg/dL (8.4-10.2); Cholesterol 161 mg/dL (0-200); Estimated Glomerular Filt Rate > 60; Glucose 120 mg/dL (65-110); HDL Direct 40 mg/dL; Triglycerides 94 mg/dL (<150)
[2024-11-08 12:09] LABS: LDL Cholesterol Direct 95 mg/dL
[2024-11-08 12:29] LABS: Prostate Specific Antigen 8.2 ng/mL (< OR = 4.0)
[2024-11-08 21:25] LABS: Hemoglobin A1C 6.1 % (<5.7)
== END 2024-11-08 08:12 | disposition home or self-care (01) ==
PROVIDERS: PCP Nurse Practitioner; Visit Provider Nurse Practitioner
DX: Z12.5 Encounter for screening for malignant neoplasm of prostate (principal); C61 Malignant neoplasm of prostate; E78.2 Mixed hyperlipidemia; R73.03 Prediabetes
CPT/HCPCS: 36415; 80053; 80061; 83036; 84153; G0103

== ENCOUNTER 2025-03-21 09:06 | Outpatient (CLI) | payer MEDICARE, SELFPAY ==
--- NOTE | ~2025-03-21 | CT_ITS ---
Non-contrast CT scan of the Abdomen and Pelvis Clinical indication: Prostate cancer, back pain Technique: 2.5 mm axial scans were obtained through the abdomen and pelvis without intravenous or or al contrast. Dose reduction technique was used on this scan by utilizing automated exposure control a nd iterative reconstruction technique. The dose-length product (DLP) was 1133.01 mGy-cm. Findings: Images through the lung bases reveal no abnormalities. There is no evidence of renal or ureteral calculi. The kidneys and the ureters are nondilated. The liver, spleen, pancreas, gallbladder, and adrenals appear normal. There is no aortic aneurysm. There is no evidence of bowel obstruction. Images through the pelvis were performed. There is no evidence of ascites or lymphadenopathy. Urinary bladder unremarkable. Prostate gland is enlarged. No ascites. Bilateral L5 pars interarticularis defects are present, 1 cm anterolisthesis of L5 over S1, and sever e degenerative disc narrowing at this level. No osteoblastic lesion evident. Impression: No evidence of metastatic disease. Enlarged prostate gland. Bilateral L5 pars interarticularis defects, with 1 cm anterolisthesis of L5 over S1. Reviewed, dictated and finalized at location . Impression: No evidence of metastatic disease. Enlarged prostate gland. Bilateral L5 pars interarticularis defects, with 1 cm anterolisthesis of L5 ove r S1.
== END 2025-03-21 09:07 | disposition home or self-care (01) ==
PROVIDERS: PCP Family Medicine; Visit Provider Urology
DX: C61 Malignant neoplasm of prostate (principal); M54.50 Low back pain, unspecified
CPT/HCPCS: 74176

== ENCOUNTER 2025-06-14 09:24 | Outpatient (CLI) | payer MEDICARE, SELFPAY ==
--- OUTSIDE RECORDS SUMMARY | 2025-04-30 10:00 | XMS_ITS ---
Author Organization [facility] Address [address] [place], [place] [id number] Care Team Providers Care Industrial Maintenance Millwright Name Role Phone YESIKA MENESES Unavailable [phone] Harleen George Unavailable Unavailable REASON FOR VISIT The patient likes the new material for his orthotics. He would like his old devices refurbished with the new material Medications Medication SIG (Take, Route, Frequency, Duration) Notes Start Date End Date Status tiZANidine HCl 4 MG TAKE 1 TABLET BY MOUTH EVERYDAY AT BEDTIME Oral; Duration: 90 Days Unknown Lisinopril 10 MG Oral; Duration: 90 Days Active Esomeprazole Magnesium 40 MG TAKE 1 CAPSULE (40 MG TOTAL) BY MOUTH DAILY. Oral; Duration: 90 Days Unknown Medrol Dosepak ORAL Medrol DosepakOr iginal MedicationMedrol Dosepak *Reorder from [employer] for eRx and Interaction Alerts* 12/06/2014 Active omeprazole 40 MG Delayed Release Oral Capsule ORAL omeprazole 40 MG Delayed Release Oral CapsuleOriginal Medicationomeprazole 40 MG Delayed Release Oral Capsule *Reorder from [employer] for eRx and Interaction Alerts* 12/06/2014 Active Atorvastatin Calcium 10 MG TAKE 1 TABLET BY MOUTH EVERY DAY Oral; Duration: 90 Days Unknown atorvastatin 10 MG Oral Tablet ORAL atorvastatin 10 MG Oral TabletOriginal Medicationatorvastatin 10 MG Oral Tablet *Reorder from [employer] for eRx and Interaction Alerts* 12/06/2014 Active Social History Tobacco Use: Social History Observation Description Date Details (start date - stop date) Never Smoker NA - NA Sex Assigned At : Social History Observation Description Sex Assigned At Male Tobacco Control (Standard) Question Answer Notes Tobacco use: Nonsmoker Encounters Encounter Location Date Provider Diagnosis [facility] [address] [place], [place] [id number] 04/30/2025 YESIKA MENESES Hallux rigidus, left foot M20.22 ; Plantar [...] prn, Reason: Wind ow dispense refurbished orthotics Progress Notes * ERASTO WEBB RDOB:1950 (74 yo M)Acc No.[id number]:04/30/2025 Patient: ERASTO COONEY Provider: Susi Meneses DPM :1950 A ge:74 Y S ex:Male Date:04/30/2025 Address:[address] [place] [address] Subjective: * Chief Complaints: * 1 . The patient likes the new material for his orthotics. He would like his old devices refurbished with the new material. * HPI: H PI: Follow Up Visit [...] confusion, difficulty speaking, dizziness. * Medical History: A declan reflux, Cancer, GERD, Skin cancer, Hypertension. * Family History: F ather: skin cancer, arthritis, hypertension. M other: , cancer. B rother: SIB - Brother: , :: Arthritis,,known absent . * Social History: T obacco Use: T obacco Control (Standard) T obacco use: N onsmoker. D rugs/Alcohol: D o you drink alcohol?: Yes, Daily. * Medications: T aking atorvastatin 10 MG Oral Tablet ORAL , Notes to Pharmacist: atorvastatin 10 MG Oral TabletOriginal Medicationatorvastatin 10 MG Oral Tablet *Reorder from [employer] for eRx and Interaction Alerts*, Taking Medrol Dosepak ORAL , Notes to Pharmacist: Medrol DosepakOriginal MedicationMedrol Dosepak *[facility] for eRx and Interaction Alerts*, Taking omeprazole 40 MG Delayed Release Oral Capsule ORAL , Notes to Pharmacist: omeprazole 40 MG Delayed Release Oral CapsuleOriginal Medicationomeprazole 40 MG Delayed Release Oral Capsule *Reorder from [employer] for eRx and Interaction Alerts*, Taking Lisinopril 10 MG Tablet Oral , Unknown Esomeprazole Magnesium 40 MG Capsule Delayed Release TAKE 1 CAPSULE (40 MG TOTAL) BY MOUTH DAILY. Oral , Unknown tiZANidine HCl 4 MG Tablet TAKE 1 TABLET BY MOUTH EVERYDAY AT BEDTIME Oral , Unknown Atorvastatin Calcium 10 MG Tablet TAKE 1 TABLET BY MOUTH EVERY DAY Oral , Medication List reviewed and reconciled with the patient Objective: * Vitals: * Examination: C onstitutional: Constitutional T he [...] Orthotics sent to lab for refurbishment. * Follow Up: p rn (Reason: Window dispense refurbished orthotics) * Billing Information: * Visit Code: 12581 Office Visit, Est Pt., Level 3. * Procedure Codes: * Electronic signature of YESIKA MENESES DPM on 06/14/2025 at 09:52 AM CDT Sign off status: Pending * Provider: Susi Meneses DPM Date: 0 04/30/2025 Generated for Gaudencio Bishop/Ashish on: 1 09:52 AM CDT History and Physical Notes * HPI (History of Present Illness) Category Sub-Category Detail Notes Category Not es HPI Follow Up Visit Patient presents for follow up visit for orthotics., Patient states their problem is, improving., MA: mf Examination Category Sub-Category Detail Notes Category Not [...]
--- OUTSIDE RECORDS SUMMARY | 2025-06-14 09:52 | XMS_ITS | Encounter Summary ---
Author Organization [facility] Address [address] [place] [address] Care Team Providers Care Core Machine Operator Name Role Phone Yoni Molina MD Primary Care Provider [phone] Encounter Details Date Type Department Care Team (Late st Contact Info) Description 09/15/2018 Lab Requisition [facility] Care DermPath Lab [address] [facility] [place] [phone] Denny Santana MD [address] [place] [address] Social History Tobacco Use Types Packs/Day Years Used Date Smoking Tobacco: Former Smokeless Tobacco: Never Alcohol Use Standard Drinks/Week Comments Yes 0 (1 standard drink = 0.6 oz pur e alcohol) Sex and Gender Information Value Date Recorded Sex Assigned at Not on file Legal Sex Male 5:16 PM CHIEF I DISPATCHER Gender Identity Not on file Sexual Orientation Not on file documented as of this encounter Plan of Treatment Not on file documented as of this encounter Procedures Procedure Name Priority Date/Time Associated Diagnosis Comments DERMATOPATHOLOGY Routine 09/14/2018 12:0 0 AM CHIEF I DISPATCHER documented in this encounter Results * DERMATOPATHOLOGY (09/14/2018 12:00 AM CHIEF I DISPATCHER) Case Report Dermatopathology Report Case: [id number] Authorizing Provider: Denny Santana MD Collected: 09/14/2018 12:00 AM Pathologist: Kelle Watkins MD Received: 09/15/2018 12:02 PM Specimens: A) - Skin, right upper breast B) - Skin, left upper breast 2:06 PM [facility] DERMATOPATHOLOGY LABORATORY Final Diagnosis Specimen A. SKIN, right upper breast: LENTIGINOUS MELANOCYTIC NEVI, COMPOUND TYPE, IRRITATED (COMPOUND MELANOCYTIC NEVI WITH ARCHITECTURAL DISORDER) (D22.5) (see microscopic description and comment) Specimen B. SKIN, left upper breast: LENTIGINOUS MELANOCYTIC NEVUS, COMPOUND TYPE, IRRITATED (COMPOUND MELANOCYTIC NEVUS WITH ARCHITECTURAL DISORDER) (D22.5) CHRONIC PERIFOLLICULITIS (L73.8) (see microscopic description) 2:06 PM [facility] DERMATOPATHOLOGY LABORATORY at [address] [facility] Clinical History A-B: R/O dys nevus. 2:06 PM [facility] DERMATOPATHOLOGY LABORATORY Gross Description Specimen A: Received is one formalin filled container labeled with the patient's name and designated right upper breast. The specimen consists of a shave biopsy measuring [id number]. Jar 0. Specimen B: Received is one formalin filled container labeled with the patient's name and designated left upper breast. The specimen consists of a shave biopsy measuring [id number]. Jar 0. 2:06 PM [facility] DERMATOPATHOLOGY LABORATORY Microscopic Description Specimen A. [...] a perifollicular lymphohistiocytic infiltrate. 9 2:06 PM [facility] DERMATOPATHOLOGY LABORATORY Disclaimer An external and internal positive and negative controls are appropriate for the histochemical, immunohistochemical and immunofluorescence stain(s) in this case (if any), except where stated explicitly. The performance characteristics of the stain(s) cited in this report were developed and its performance characteristic determined by the Dermatopathology Laboratory at [facility]. These tests need not be, and therefore are not, approved by the [place] Food and Drug Administration. The tests are used for clinical purposes. Billing Codes Specimen Charges Stain Charges 44077 90264 1 1 68188 43640 1 1 9 2:06 PM [facility] DERMATOPATHOLOGY LABORATORY Embedded Images 9 2:06 PM [facility] DERMATOPATHOLOGY LABORATORY Pathology/Cytology TISSUE SPECIMEN FROM SKIN / Unknown 09/14/2018 09/15/2018 12:02 PM CHIEF I DISPATCHER Miscellaneous samples (specimen) TISSUE SPECIMEN FROM SKIN / Unknown 09/14/2018 09/15/2018 12:02 PM CHIEF I DISPATCHER us Denny Santana MD LAB - PATHOLOGY/CYTOLOGY ORD ERABLES Final Result DERMATOPATHOLOGY LABORATORY [facility] - Department of Dermatology [facility] [facility], 5th Floor Lab [address] [phone] documented in this encounter Visit Diagnoses Not on filedocumented in this encounter Care Teams Core Machine Operator Relationship Specialty Start Date End Date Yoni Molina MD [address] [place] [address] PCP - General 04/07/17 documented as of this encounter
--- OUTSIDE RECORDS SUMMARY | 2025-06-14 09:52 | XMS_ITS | Clinical Summary ---
Author Organization [facility] Address [address] [place] [address] Care Team Providers Care Pan Dumper Name Role Phone Harleen George Primary Care Provider [phone] Allergies No known active allergies Medications atorvastatin 10 MG tablet 04/16/2020 Active lisinopril 2.5 MG tablet Take 1 tablet (2.5 mg total) by mouth daily. 07/14/2021 Active tiZANidine (ZANAFLEX) 4 MG tablet Take 1 tablet (4 mg total) by mouth nightly at bedtime. 06/30/2024 Active Active Problems Problem Noted Date Diagnosed Date Gastroesophageal reflux dise ase, unspecified whether esophagitis present 04/14/2024 Esophageal dysphagia 10/06/2021 Overview (10/06/2021): Added automatically from request for surgery [id number] Esophageal stricture 10/06/2021 Overview (10/06/2021): Added automatically from request for surgery [id number] Resolved Problems Problem Noted Date Diagnosed Date Resolved Date Screening for colon cancer 04/18/2024 0 04/24/2024 Screening for colon cancer 04/18/2024 0 06/05/2024 Screening for colon cancer 04/18/2024 1 Screening for colon cancer 04/18/2024 1 Screening for malignant neoplasm of colon 04/14/2024 04/24/2024 Family History Medical History Relation Comments Cancer Father Skin cancer Early Hearing Loss Father Hypertension Father No Known Problems Maternal Aunt No Known Problems Maternal Grandmother No Known Problems Maternal Uncle Cancer Mother Skin cancer No Known Problems Paternal Aunt Diabetes Paternal Grandfather No Known Problems Paternal Grandmother No Known Problems Paternal Uncle Asthma Son Relation Status Comments Father Alive Maternal Aunt Maternal Grandmother Maternal Uncle Mother Paternal Aunt Paternal Grandfather Paternal Grandmother Paternal Uncle Son Alive Social History Tobacco Use Types Packs/Day Years Used Date Smoking Tobacco: Never Smokeless Tobacco: Never Tobacco Cessation:Counseling Given: No Alcohol Use Standard Drinks/Week Comments Yes 23.3 (1 standard drink = 0.6 oz pure alcohol) 2 beers daily PHQ-2 Answer Date Recorded Patient Health Questionnaire-2 Score 0 01/15/2025 Sex and Gender Information Value Date Recorded Sex Assigned at Not on file Legal Sex Male 7:50 PM CDT Gender Identity Male 10/09/2021 9:37 AM RCP Sexual Orientation Not on file Last Filed Vital Signs Vital Sign Reading Time Taken Comments Blood Pressure 157/85 01/15/2025 8:10 AM CDT Pulse 52 01/15/2025 8:10 AM CDT Temperature 36.4 C (97.5 F) 01/15/2025 8:00 AM CDT Respiratory Rate 16 06/30/2024 11:3 0 AM CDT Oxygen Saturation 97% 01/15/2025 8:00 AM CDT Inhaled Oxygen Concentration - - Weight 102.2 kg (225 lb 6.4 oz) 01/15/2025 8:00 AM CDT Height 180.3 cm (5' 11) 01/15/2025 8:00 AM CDT Body Mass Index 31.44 01/15/2025 8:00 AM CDT Plan of Treatment Health Maintenance Due Date Last Done Comments Hepatitis C 1970 Zoster Vaccines (1 of 2) 2002 Annual Medicare Wellness Visit 2017 COVID-19 Vaccine (2 - 2024-2 6 season) 2025 06/20/2021 RSV Immunization or 60+ Years (1 - 1-dose 75+ series) 2027 DTaP, Tdap and Td Vaccines ( 2 - Td or Tdap) 06/05/2029 06/05/2019 Colorectal Cancer Screening Colonoscopy (10 Years) 06/30/2034 06/30/2024 Pneumococcal Vaccine: 50+ Years Completed 06/05/2019, 02/21/2018 PHQ-2 (Physician [place]) Completed 01/15/2025 Meningococcal B Vaccine Aged Out No l onger eligible based on patient's age to complete this topic Meningococcal Vaccine Aged Out No hayde jordin eligible based on patient's age to complete this topic RSV Immunizations Under 20 Months Aged Out No longer eligible b ased on patient's age to complete this topic Insurance [facility] MEDICARE Care Teams Pan Dumper Relationship Specialty Start Date End Date Harleen George DO [address] [place] [address] PCP - General FAMILY PRACTICE 05/02/20
--- OUTSIDE RECORDS SUMMARY | 2025-06-14 09:52 | XMS_ITS | Encounter Summary ---
Author Organization [facility] Address [address] [facility] [place] [address] Care Team Providers Care Extrusion Engineer Name Role Phone Yoni Molina MD Primary Care Provider [phone] Encounter Details Date Type Department Care Team (Late st Contact Info) Description 01/01/2022 Lab Requisition [facility] Care DermPath Lab [address] [facility] [place] [phone] Denny Santana MD [address] [place] [address] Social History Tobacco Use Types Packs/Day Years Used Date Smoking Tobacco: Former Smokeless Tobacco: Never Alcohol Use Standard Drinks/Week Comments Yes 0 (1 standard drink = 0.6 oz pur e alcohol) Sex and Gender Information Value Date Recorded Sex Assigned at Not on file Legal Sex Male 5:16 PM WIRE ROLLER Gender Identity Not on file Sexual Orientation Not on file documented as of this encounter Plan of Treatment Not on file documented as of this encounter Procedures Procedure Name Priority Date/Time Associated Diagnosis Comments DERMATOPATHOLOGY Routine 12/31/2021 12:0 0 AM CDT documented in this encounter Results * DERMATOPATHOLOGY (12/31/2021 12:00 AM CDT) Case Report Dermatopathology Report Case: [id number] Authorizing Provider: Denny Santana MD Collected: 12/31/2021 12:00 AM Ordering Location: [facility] DermPath Lab Received: 01/01/2022 11:50 AM Pathologist: Mónica Corona MD Specimen: Skin, sup left breast at sternum 2 3:53 PM CDT DERMATOPATHOLOGY LABORATORY Final Diagnosis Specimen A. SKIN, sup left breast at sternum: JUNCTIONAL MELANOCYTIC NEVUS, IRRITATED (D22.5) POST-INFLAMMATORY PIGMENT ALTERATION (L81.9) 2 3:53 PM CDT DERMATOPATHOLOGY LABORATORY at 1553 CDT Clinical History R/O SK vs. Dysplastic Nevus. 2 3:53 PM CDT DERMATOPATHOLOGY LABORATORY Gross Description Specimen A: Received is one formalin filled container labeled with the patients name and designated sup left breast at sternum. The specimen consists of a shave removal measuring [id number]. Jar 0. 2 3:53 PM CDT DERMATOPATHOLOGY [...] characteristic determined by the Dermatopathology Laboratory at [facility], directed by Dr. Francisco Corona. These tests need not be, and therefore are not, approved by the [place] Food and Drug Administration. The tests are used for clinical purposes. Billing Codes Specimen Charges Stain Charges 45841 1 2 3:53 PM CDT DERMATOPATHOLOGY LABORATORY Embedded Images 2 3:53 PM CDT DERMATOPATHOLOGY LABORATORY Pathology/Cytolog y TISSUE SPECIMEN FROM SKIN / Unknown 12/31/2021 01/01/2022 11:50 AM CDT us Denny Santana MD LAB - PATHOLOGY/CYTOLOGY ORD ERABLES Final Result DERMATOPATHOLOGY LABORATORY [facility] - Department of Dermatology [address], [address] [phone] documented in this encounter Visit Diagnoses Not on filedocumented in this encounter Care Teams Extrusion Engineer Relationship Specialty Start Date End Date Yoni Molina MD [address] [place] [address] PCP - General 04/07/17 documented as of this encounter
--- OUTSIDE RECORDS SUMMARY | 2025-06-14 09:52 | XMS_ITS | Encounter Summary ---
Author Organization [facility] Address [address] [facility] [place] [address] Care Team Providers Care Electric Utility Lineworker Name Role Phone Yoni Molina MD Primary Care Provider [phone] Encounter Details Date Type Department Care Team (Late st Contact Info) Description 02/16/2018 Lab Requisition [facility] Care DermPath Lab [address] [facility], [place] [phone] Denny Santana MD [address] [place] [address] Social History Tobacco Use Types Packs/Day Years Used Date Smoking Tobacco: Former Smokeless Tobacco: Never Alcohol Use Standard Drinks/Week Comments Yes 0 (1 standard drink = 0.6 oz pur e alcohol) Sex and Gender Information Value Date Recorded Sex Assigned at Not on file Legal Sex Male 5:16 PM R&D LAB TECHNICIAN Gender Identity Not on file Sexual Orientation Not on file documented as of this encounter Plan of Treatment Not on file documented as of this encounter Procedures Procedure Name Priority Date/Time Associated Diagnosis Comments DERMATOPATHOLOGY Routine 02/15/2018 12:0 0 AM CDT documented in this encounter Results * DERMATOPATHOLOGY (02/15/2018 12:00 AM CDT) Case Report Dermatopathology Report Case: [id number] Authorizing Provider: Denny Santana MD Collected: 02/15/2018 12:00 AM Pathologist: Mónica Corona MD Received: 02/16/2018 12:22 PM Specimens: A) - Skin, left mid back B) - Skin, right lateral mid back 4:58 PM [facility] DERMATOPATHOLOGY LABORATORY Final Diagnosis Specimen A. SKIN, left mid back: LENTIGINOUS MELANOCYTIC NEVUS, COMPOUND TYPE, IRRITATED (COMPOUND MELANOCYTIC NEVUS WITH ARCHITECTURAL DISORDER) (D22.5) NOT PRESENT AT SAMPLED MARGIN Specimen B. SKIN, right lateral mid back: COMPOUND NEVUS WITH CONGENITAL FEATURES (D22.5) APPROXIMATES MARGIN 4:58 PM T DERMATOPATHOLOGY LABORATORY at 1658 CDT Clinical History A-B: R/O dys nevus. Check margins. 4:58 PM T DERMATOPATHOLOGY LABORATORY Gross Description Specimen A: Received is one formalin filled container labeled with the patient's name and designated left mid back. The specimen consists of a shave biopsy measuring [id number], the margin is inked green. Jar 0. Specimen B: Received is one formalin filled container labeled with the patient's name and designated right lateral mid back. The specimen consists of a shave biopsy measuring [id number], the margin is inked green. Jar 0. 4:58 PM T DERMATOPATHOLOGY LABORATORY Microscopic Description Specimen A. SKIN, [...] the margin of the specimen. 4:58 PM T DERMATOPATHOLOGY LABORATORY Disclaimer An external and internal positive and negative controls are appropriate for the histochemical, immunohistochemical and immunofluorescence stain(s) in this case (if any), except where stated explicitly. The performance characteristics of the stain(s) cited in this report were developed and its performance characteristic determined by the Dermatopathology Laboratory at [facility]. These tests need not be, and therefore are not, approved by the [place] Food and Drug Administration. The tests are used for clinical purposes. Billing Codes Specimen Charges Stain Charges 84707 45923 1 1 99289 1 8 4:58 PM CDT DERMATOPATHOLOGY LABORATORY Embedded Images 8 4:58 PM CDT DERMATOPATHOLOGY LABORATORY Pathology/Cytology TISSUE SPECIMEN FROM SKIN / Unknown 02/15/2018 02/16/2018 12:22 PM CDT Miscellaneous samples (specimen) TISSUE SPECIMEN FROM SKIN / Unknown 02/15/2018 02/16/2018 12:22 PM CDT Denny Santana MD LAB - PATHOLOGY/CYTOLOGY ORD ERABLES Final Result DERMATOPATHOLOGY LABORATORY [facility] - Department of Dermatology [address] [facility], 5th Floor Lab [address] [phone] documented in this encounter Visit Diagnoses Not on filedocumented in this encounter Care Teams Electric Utility Lineworker Relationship Specialty Start Date End Date Yoni Molina MD [address] [place] [address] PCP - General 04/07/17 documented as of this encounter
--- OUTSIDE RECORDS SUMMARY | 2025-06-14 09:52 | XMS_ITS | Patient Health Record ---
Author Organization [facility] Address [address] [place], [place] [id number] Care Team Providers Care Escort Service Attendant Name Role Phone YESIKA MENESES Unavailable [phone] Vernaclevar Harleen Unavailable Unavailable Allergies No Known Allergies Reason For Referral No Information Medications Medication SIG (Take, Route, Frequency, Duration) Notes Start Date End Date Status tiZANidine HCl 4 MG TAKE 1 TABLET BY MOUTH EVERYDAY AT BEDTIME Oral; Duration: 90 Days Unknown Atorvastatin Calcium 10 MG TAKE 1 TABLET BY MOUTH EVERY DAY Oral; Duration: 90 Days Unknown Lisinopril 10 MG Oral; Duration: 90 Days Active Esomeprazole Magnesium 40 MG TAKE 1 CAPSULE (40 MG TOTAL) BY MOUTH DAILY. Oral; Duration: 90 Days Unknown Medrol Dosepak ORAL Medrol DosepakOr iginal MedicationMedrol Dosepak *Reorder from [employer] for eRx and Interaction Alerts* 12/06/2014 Active omeprazole 40 MG Delayed Release Oral Capsule ORAL omeprazole 40 MG Delayed Release Oral CapsuleOriginal Medicationomeprazole 40 MG Delayed Release Oral Capsule *Reorder from [employer] for eRx and Interaction Alerts* 12/06/2014 Active atorvastatin 10 MG Oral Tablet ORAL atorvastatin 10 MG Oral TabletOriginal Medicationatorvastatin 10 MG Oral Tablet *Reorder from [employer] for eRx and Interaction Alerts* 12/06/2014 Active Social History Tobacco Use: Social History Observation Description Date Details (start date - stop date) Never Smoker NA - NA Sex Assigned At : Social History Observation Description Sex Assigned At Male Tobacco Control (Standard) Question Answer Notes Tobacco use: Nonsmoker Vital Signs Height-cm 182.88 cm 03/19/2025 Weight-kg 97.98 kg 03/19/2025 Height 72.00 in 03/19/2025 Weight 216 lbs 03/19/2025 BMI 29.29 kg/m2 03/19/2025 Encounters Encounter Location Date Provider Diagnosis [facility] [place] [address] [place] [address] [id number] 04/30/2025 YESIKA SNOOK Hallux rigidus, left foot M20.22 ; Plantar fasciitis M72.2 ; Metatarsalgia, left foot M77.42 and Metatarsalgia of right foot M77.41 [facility] [place] [address] [place] [address] [id number] 02/19/2025 YESIKA SNOOK Hallux rigidus, left foot M20.22 ; Metatarsalgia, left foot M77.42 ; Metatarsalgia of right foot M77.41 ; Pain in right foot M79.671 and Left foot pain M79.672 [facility] [place] [address] [place] [address] [id number] 03/19/2025 YESIKA SNOOK Hallux rigidus, left foot M20.22 ; Plantar fasciitis M72.2 ; Metatarsalgia, left foot M77.42 ; Metatarsalgia of right foot M77.41 ; Pain in right foot M79.671 and Left foot pain M79.672 Assessments Encounter Date Diagnosis (ICD Code) Assessment Notes Treatment Notes Treatment Clinical Notes Section Notes 02/19/2025 Hallux rigidus, left foot (ICD-10 - M20.22) Hallux Limitus: Discussed various treatments with the patient regarding hallux limitus deformity. Discussed conservative care consisting of padding, wider shoes, anti-inflammatorie s, and orthotics. Discussed surgical treatment options and answered all questions about the intra-operative and post-operative treatment course. 02/19/2025 Metatarsalgia, left foot (ICD-10 - M77.42) Metatarsalgia: I discussed anti-inflammatory treatment options and various means of immobilization with the patient. I educated the patient on icing and stretching, supportive shoegear, and the use of orthotic devices and bracing. Orthotic Scan: The patient was scanned for functional orthotic devices. This was done in the subtalar joint neutral position in a non-weightbearing fashion. The patient will follow-up in 3-4 weeks time to be dispensed and fitted with the devices. 03/19/2025 Hallux rigidus, left foot (ICD-10 - M20.22) Hallux Limitus: Discussed various treatments with the patient regarding hallux limitus deformity. Discussed conservative care consisting of padding, wider shoes, anti-inflammatorie s, and orthotics. Discussed surgical treatment options and answered all questions about the intra-operative and post-operative treatment course. 03/19/2025 Plantar fasciitis (ICD-10 - M72.2) 04/30/2025 Hallux rigidus, left foot (ICD-10 - [...] Refurbishment: Orthotics sent to lab for refurbishment. 03/19/2025 Metatarsalgia, left foot (ICD-10 - M77.42) Metatarsalgia: I discussed anti-inflammatory treatment options and various means of immobilization with the patient. I educated the patient on icing and stretching, supportive shoegear, and the use of orthotic devices and bracing. Orthotic Dispense: The orthotic devices were dispensed and fitted. It was noted that the orthotic conformed well to the patient's foot in the subtalar joint neutral position. The patient was educated on the device's use, as well as the gradual break-in period for the device. 02/19/2025 Metatarsalgia of right foot (ICD-10 - M77.41) 02/19/2025 Pain in right foot (ICD-10 - M79.671) 04/30/2025 Metatarsalgia of right foot (ICD-10 - M77.41) 03/19/2025 Metatarsalgia of right foot (ICD-10 - M77.41) 02/19/2025 Left foot pain (ICD-10 - M79.672) 03/19/2025 Pain in right foot (ICD-10 - M79.671) 03/19/2025 Left foot pain (ICD-10 - M79.672) Plan Of Treatment No Information Insurance Providers Payer Name Payer Address Payer Phone Subscriber Number Group Number Insured Name Patient Relationship to Insured Coverage Start Date Coverage End Date [facility] [address] [address] [place] [address] [id number] ERASTO WEBB Self - patient is the insured Medical (General) History Medical History History ICD Code acid reflux Cancer GERD skin cancer hypertension
--- OUTSIDE RECORDS SUMMARY | 2025-06-14 09:52 | XMS_ITS | Encounter Summary ---
Author Organization [facility] Address [address] [place] [address] Care Team Providers Care Documentation Improvement Specialist Name Role Phone Harleen George DO Primary Care Provider Encounter Details Date Type Department Care Team (Latest Contact Info) Description 01/28/2023 PEER Message Enc [facility] Multispecialty Care - [address], [address] [place] [address] [place] Provider follow up appointment Social History [...] CDT Gender Identity Male 10/09/2021 9:37 AM BRYOLOGIST Sexual Orientation Not on file documented as of this encounter Plan of Treatment Not on file documented as of this encounter Visit Diagnoses Not on filedocumented in this encounter Additional Health Concerns Assessment Noted Time PHQ-9 Depression Total Score: 0 10/03/19 22 3:11 PM BRYOLOGIST documented as of this encounter Care Teams Documentation Improvement Specialist Relationship Specialty Start Date End Date Harleen George DO [address] [place] [address] PCP - General FAMILY PRACTICE 05/02/20 documented as of this encounter
--- OUTSIDE RECORDS SUMMARY | 2025-06-14 09:52 | XMS_ITS | Clinical Summary ---
Author Organization [facility] Address [address] [place] [address] Care Team Providers Care Sales Development Specialist Name Role Phone Yoni Molina MD Primary Care Provider [phone] Source Comments [facility],non-owned Affiliates and Associated Physician Practices is amultiple site organization consisting of ambulatory clinics and hospital sitesin [place], [place], [place] and [place]. This disclosure is being madepursuant to the Care Everywhere program and may not contain all information available regarding this patient. Last updated 18.[facility] Medications * Be aware that medications may not be up to date on this document. Alwaysverify current medications with the patient. pyridoxine 25 MG tablet Take by mouth. [...] on file Legal Sex Male 5:16 PM PUTTY TINTER MAKER Gender Identity Not on file Sexual Orientation Not on file Last Filed Vital Signs Vital Sign Reading Time Taken Comments Blood Pressure 158/90 08/10/2017 2:17 PM PUTTY TINTER MAKER Pulse 56 08/10/2017 2:17 PM PUTTY TINTER MAKER Temperature - - Respiratory Rate - - Oxygen Saturation 98% 08/10/2017 2:17 PM PUTTY TINTER MAKER Inhaled Oxygen Concentration - - Weight 94.3 kg (208 lb) 08/10/2017 1:11 PM PUTTY TINTER MAKER Height 180.3 cm (5' 11) 08/10/2017 1:11 PM PUTTY TINTER MAKER Body Mass Index 29.01 08/10/2017 1:11 PM PUTTY TINTER MAKER Plan of Treatment Health Maintenance Due Date [...] (1 of 2) 2002 AAA SCREENING 2017 DEPRESSION SCREENING 09/13/2024 COVID-19 VACCINE (1 - 2023-2 5 season) 2025 INFLUENZA VACCINE (#1) 2025 Respiratory Syncytial Virus (RSV) Vaccine Pt: or [...] to complete this topic MENINGOCOCCAL (Group B) VACC INE SHARED DECISION-MAKING Aged Out No longer eligibl e based on patient's age to complete this topic MENINGOCOCCAL GROUPS A/C/Y/W VACCINE Aged Out No longer eligible b ased on patient's age to complete this topic Insurance [facility] MEDICARE ADV Care Teams Sales Development Specialist Relationship Specialty Start Date End Date Yoni Molina MD [address] [place] [address] PCP - General 04/07/17
[2025-06-14 13:00] LABS: Hematocrit 43.5 % (42.0-52.0); Hemoglobin 14.3 g/dL (14.0-18.0); Mean Corpuscular HGB Conc 32.9 g/dl (32-36); Mean Corpuscular Hemoglobin 29.5 pg (26-34); Mean Corpuscular Volume 89.7 fl (80-100); Platelet Count Result 214 k/mm3 (150-375); Red Blood Count 4.85 M/mm3 (4.6-6.20); White Blood Count 6.2 K/mm3 (4.5-10.0)
[2025-06-14 13:16] LABS: Alanine Aminotransferase 26 U/L (6-50); Albumin Level 4.4 g/dL (3.5-5.1); Alkaline Phosphatase 52 U/L (38-126); Anion Gap 8 mmol/L (4-12); Aspartate Amino Transferase 55 U/L (17-59); Bilirubin,Total 0.8 mg/dL (0.2-1.3); Blood Urea Nitrogen 16 mg/dL (9-20); Calcium 9.3 mg/dL (8.4-10.2); Carbon Dioxide 25 mmol/L (22-30); Chloride 103 mmol/L (98-107); Cholesterol 180 mg/dL (0-200); Estimated Glomerular Filt Rate > 60; Glucose 123 mg/dL (65-110); HDL Direct 37 mg/dL; Potassium 4.2 mmol/L (3.4-5.0); Sodium 136 mmol/L (137-145); Total Protein 7.2 g/dL (6.3-8.2); Triglycerides 95 mg/dL (<150)
[2025-06-14 13:57] LABS: Thyroid Stimulating Hormone 1.540 uIU/mL (0.465-4.680)
[2025-06-14 16:09] LABS: Hemoglobin A1C 6.1 % (<5.7)
== END 2025-06-14 09:25 | disposition home or self-care (01) ==
LOC: ANHGOSHLAB 09:25
PROVIDERS: PCP Family Medicine; Visit Provider Nurse Practitioner
DX: E78.2 Mixed hyperlipidemia (principal); R73.03 Prediabetes; R03.0 Elevated blood-pressure reading, without diagnosis of hypertension; E03.9 Hypothyroidism, unspecified
CPT/HCPCS: 36415; 80053; 80061; 83036; 84443; 85027

== ENCOUNTER 2025-07-17 09:14 | Outpatient (CLI) | payer MEDICARE, SELFPAY ==
--- OUTSIDE RECORDS SUMMARY | 2025-04-30 09:00 | XMS_ITS ---
Author Organization [facility] Address [address] [place], [place] [address] Care Team Providers Care [employer] Safety Program Coordinator Name Role Phone YESIKA MENESES Unavailable [phone] Harleen George Unavailable Unavailable REASON FOR VISIT The patient likes the new material for his orthotics. He would like his old devices refurbished with the new material Medications Medication SIG (Take, Route, Frequency, Duration) Notes Start Date End Date Status tiZANidine HCl 4 MG Tablet TAKE 1 TABLET BY MOUTH EVERYDAY AT BEDTIME Oral; Duration: 90 Days Unknown Lisinopril 10 MG Tablet Oral; Duration: 90 Days Active Esomeprazole Magnesium 40 MG Capsule Delayed Release TAKE 1 CAPSULE (40 MG TOTAL) BY MOUTH DAILY. Oral; Duration: 90 Days Unknown Medrol Dosepak ORAL Medrol DosepakOr iginal MedicationMedrol Dosepak *Reorder from [facility] for eRx and Interaction Alerts* 12/06/2014 Active omeprazole 40 MG Delayed Release Oral Capsule ORAL omeprazole 40 MG Delayed Release Oral CapsuleOriginal Medicationomeprazole 40 MG Delayed Release Oral Capsule *Reorder from [facility] for eRx and Interaction Alerts* 12/06/2014 Active Atorvastatin Calcium 10 MG Tablet TAKE 1 TABLET BY MOUTH EVERY DAY Oral; Duration: 90 Days Unknown atorvastatin 10 MG Oral Tablet ORAL atorvastatin 10 MG Oral TabletOriginal Medicationatorvastatin 10 MG Oral Tablet *Reorder from [facility] for eRx and Interaction Alerts* 12/06/2014 Active Social History Tobacco Use: Social History Observation Description Date Details (start date - stop date) Never Smoker NA - NA Sex Assigned At : Social History Observation Description Sex Assigned At Male Social History Tobacco Use: Social Info Question Answer Notes Tobacco Control (Standard) Tobacco use: Nonsmoker Additional Details Category Social Info Options Details Drugs/Alcohol: Do you drink alcohol? Yes, Daily Encounters Encounter Location Date Provider Diagnosis [facility] [address] [place], [place] [id number] 04/30/2025 YESIKA SNOOK Hallux rigidus, left foot M20.22 ; Plantar fasciitis M72.2 ; Metatarsalgia, left foot M77.42 and Metatarsalgia of right foot M77.41 Assessments Encounter Date Diagnosis (ICD Code) Assessment Notes Treatment Notes Treatment Clinical Notes Section Notes 04/30/2025 Hallux rigidus, left foot (ICD-10 - M20.22) Hallux Limitus: Discussed various treatments with the patient regarding hallux limitus deformity. Discussed conservative care consisting of padding, wider shoes, anti-inflammatorie s, and orthotics. Discussed surgical treatment options and answered all questions about the intra-operative and post-operative treatment course. 04/30/2025 Plantar fasciitis (ICD-10 - M72.2) 04/30/2025 Metatarsalgia, left foot (ICD-10 - M77.42) Metatarsalgia: I discussed anti-inflammatory treatment options and various means of immobilization with the patient. I educated the patient on icing and stretching, supportive shoegear, and the use of orthotic devices and bracing. Orthotic Refurbishment: Orthotics sent to lab for refurbishment. 04/30/2025 Metatarsalgia of right foot (ICD-10 - M77.41) Plan Of Treatment Treatment Notes Assessment Notes Hallux rigidus, left foot Hallux Limitus: Discussed various treatments with the patient regarding hallux limitus deformity. Discussed conservative care consisting of padding, wider shoes, anti-inflammatories, and orthotics. Discussed surgical treatment options and answered all questions about the intra-operative and post-operative treatment course. Metatarsalgia, left foot Metatarsalgia: I discussed anti-inflammatory treatment options and various means of immobilization with the patient. I educated the patient on icing and stretching, supportive shoegear, and the use of orthotic devices and bracing. Orthotic Refurbishment: Orthotics sent to lab for refurbishment. Next Appt Details Follow Up: prn, Reason: Wind ow dispense refurbished orthotics History and Physical Notes * HPI (History of Present Illness) Category Sub-Category Detail Notes Category Not es HPI Follow Up Visit Patient presents for follow up visit for orthotics., Patient states their problem is, improving., MA: jeff Examination Category Sub-Category Detail Notes Category Not es Dermatologic Skin findings: Skin is warm, dr y, supple with no breaks in the skin Neurologic Gross sensation Gross sensation is intact to light touch Vascular Dorsalis pedis pulse: 2/4, bilateral Edema: No edema, bilateral Capillary refill: less than 3 seconds Posterior tibial pulse: 2/4, bilateral Musculoskeletal Muscle Strength Muscle strength is 5/5 in regards to dorsiflexion, plantarflexion, inversion, and eversion in bilateral lower extremities Hallux Abducto Valgus The range of motio n is, limited to the left 1st metatarsalphalangeal joint Constitutional Constitutional The patient is a wake, alert, well developed, well groomed and well nourished Progress Notes * ERASTO WEBB RDOB:1950 (74 yo M)Acc No.[id number]:04/30/2025 Patient: ERASTO COONEY R Provider: Ssui Meneses DPM :1950 A ge:74 Y S ex:Male Date:04/30/2025 Address:[address] [place] [address] Subjective: * Chief Complaints: * T he patient likes the new material for his orthotics. He would like his old devices refurbished with the new material * HPI: H PI: Follow Up Visit P atient presents for follow up visit for orthotics., Patient states their problem is, improving., MA: jeff. * ROS: G eneral / Constitutional: Patient denies c hills, fever, weakness, night sweats. M usculoskeletal: Patient denies c hildhood foot problems, weakness. P atient complains of j oint pain, bunions, orthotic use. P eripheral Vascular: Patient denies u lceration of feet, cold extremities. ? S kin: Patient denies u lcerations, discoloration. ? N eurologic: Patient denies b alance difficulty, confusion, difficulty speaking, dizziness. * Medical History: Acid reflux Cancer GERD Skin cancer Hypertension Medical History Verified * Family History: F ather: skin cancer, arthritis, hypertension. M other: , cancer. B rother: SIB - Brother: , :: Arthritis,,known absent . F amily History Verified.. * Social History: T obacco Use: T obacco Control (Standard) T obacco use: N onsmoker. D rugs/Alcohol: D o you drink alcohol?: Yes, Daily. Social History Verified. * Medications: T akingatorvastatin 10 MG Oral Tablet ORAL , Notes to Pharmacist: atorvastatin 10 MG Oral TabletOriginal Medicationatorvastatin 10 MG Oral Tablet *Reorder from [facility] for eRx and Interaction Alerts*Medrol Dosepak ORAL , Notes to Pharmacist: Medrol DosepakOriginal MedicationMedrol Dosepak *Reorder from [facility] for eRx and Interaction Alerts*omeprazole 40 MG Delayed Release Oral Capsule ORAL , Notes to Pharmacist: omeprazole 40 MG Delayed Release Oral CapsuleOriginal Medicationomeprazole 40 MG Delayed Release Oral Capsule *Reorder from [facility] for eRx and Interaction Alerts*Lisinopril 10 MG Tablet Oral Taking atorvastatin 10 MG Oral Tablet ORAL , Notes to Pharmacist: atorvastatin 10 MG Oral TabletOriginal Medicationatorvastatin 10 MG Oral Tablet *Reorder from [facility] for eRx and Interaction Alerts*Taking Medrol Dosepak ORAL , Notes to Pharmacist: Medrol DosepakOriginal MedicationMedrol Dosepak *Reorder from [facility] for eRx and Interaction Alerts*Taking omeprazole 40 MG Delayed Release Oral Capsule ORAL , Notes to Pharmacist: omeprazole 40 MG Delayed Release Oral CapsuleOriginal Medicationomeprazole 40 MG Delayed Release Oral Capsule *Reorder from [facility] for eRx and Interaction Alerts*Taking Lisinopril 10 MG Tablet Oral UnknownEsomeprazole Magnesium 40 MG Capsule Delayed Release TAKE 1 CAPSULE (40 MG TOTAL) BY MOUTH DAILY. Oral tiZANidine HCl 4 MG Tablet TAKE 1 TABLET BY MOUTH EVERYDAY AT BEDTIME Oral Atorvastatin Calcium 10 MG Tablet TAKE 1 TABLET BY MOUTH EVERY DAY Oral Medication List reviewed and reconciled with the patientUnknown Esomeprazole Magnesium 40 MG Capsule Delayed Release TAKE 1 CAPSULE (40 MG TOTAL) BY MOUTH DAILY. Oral Unknown tiZANidine HCl 4 MG Tablet TAKE 1 TABLET BY MOUTH EVERYDAY AT BEDTIME Oral Unknown Atorvastatin Calcium 10 MG Tablet TAKE 1 TABLET BY MOUTH EVERY DAY Oral Medication List reviewed and reconciled with the patient Objective: * Examination: C onstitutional: Constitutional T he patient is awake, alert, well developed, well groomed and well nourished. D ermatologic: Skin findings: S kin is warm, dry, supple with no breaks in the skin. V ascular: Dorsalis pedis pulse: 2 /4, bilateral. Posterior tibial pulse: 2 /4, bilateral. Capillary refill: l ess than 3 seconds. Edema: N o edema, bilateral. N eurologic: Gross sensation G ross sensation is intact to light touch.? M usculoskeletal: Muscle Strength M uscle strength is 5/5 in regards to dorsiflexion, plantarflexion, inversion, and eversion in bilateral lower extremities. Hallux Abducto Valgus T he range of motion is, limited to the left 1st metatarsalphalangeal joint. Assessment: * Assessment: 1. P lantar fasciitis - M72.2 (Primary) 2 . H allux rigidus, left foot - M20.22 3 . M etatarsalgia, left foot - M77.42 4 . M etatarsalgia of right foot - M77.41 Plan: * Treatment: 2. M etatarsalgia, left foot Notes: Metatarsalgia: I discussed anti-inflammatory treatment options and various means of immobilization with the patient. I educated the patient on icing and stretching, supportive shoegear, and the use of orthotic devices and bracing. O rthotic Refurbishment: Orthotics sent to lab for refurbishment. * Preventive Medicine: Screenings: F all risk screening F all Risk Assessment: N o falls in the past year. * Follow Up: p rn (Reason: Window dispense refurbished orthotics) Billing Information: * Visit Code: 69390 Office Visit, Est Pt., Level 3. * Procedure Codes: * Electronic signature of YESIKA MENESES DPM on 07/17/2025 at 10:19 AM LIFE CONSULTANT Sign off status: Pending * Provider: Susi Meneses DPM Date: 0 04/30/2025 Generated for Gaudencio bhardwaj/Koko/eTransmitting on: 09/16/2024 10:19 AM LIFE CONSULTANT
--- OUTSIDE RECORDS SUMMARY | 2025-07-17 10:19 | XMS_ITS | Patient Health Record ---
Author Organization [facility] Address [address] [place], [place] [id number] Care Team Providers Care Jailer/Training Officer Name Role Phone YESIKA MENESES Unavailable [phone] Vernace Harleen Unavailable Unavailable Allergies No Known Allergies Reason For Referral No Information Medications Medication SIG (Take, Route, Frequency, Duration) Notes Start Date End Date Status tiZANidine HCl 4 MG Tablet TAKE 1 TABLET BY MOUTH EVERYDAY AT BEDTIME Oral; Duration: 90 Days Unknown Atorvastatin Calcium 10 MG Tablet TAKE 1 TABLET BY MOUTH EVERY DAY Oral; Duration: 90 Days Unknown Lisinopril 10 MG Tablet Oral; Duration: 90 Days Active Esomeprazole Magnesium 40 MG Capsule Delayed Release TAKE 1 CAPSULE (40 MG TOTAL) BY MOUTH DAILY. Oral; Duration: 90 Days Unknown Medrol Dosepak ORAL Medrol DosepakOr iginal MedicationMedrol Dosepak *Reorder from [employer] for eRx and Interaction Alerts* 12/06/2014 Active omeprazole 40 MG Delayed Release Oral Capsule ORAL omeprazole 40 MG Delayed Release Oral CapsuleOriginal Medicationomeprazole 40 MG Delayed Release Oral Capsule *Reorder from [employer] for eRx and Interaction Alerts* 12/06/2014 Active atorvastatin 10 MG Oral Tablet ORAL atorvastatin 10 MG Oral TabletOriginal Medicationatorvastatin 10 MG Oral Tablet *Reorder from [employer] for eRx and Interaction Alerts* 12/06/2014 Active [...] Drugs/Alcohol: Do you drink alcohol? Yes, Daily Vital Signs Height-cm 182.88 cm 03/19/2025 Weight-kg 97.98 kg 03/19/2025 Height 72.00 in 03/19/2025 Weight 216 lbs 03/19/2025 BMI 29.29 kg/m2 03/19/2025 Encounters Encounter Location Date Provider Diagnosis [facility] [place] [address] [address] [place] [id number] 04/30/2025 YESIKA SNOOK Hallux rigidus, left foot M20.22 ; Plantar fasciitis M72.2 ; Metatarsalgia, left foot M77.42 and Metatarsalgia of right foot M77.41 [facility] [place] [address] [address] [place] [id number] 02/19/2025 YESIKA SNOOK Hallux rigidus, left foot M20.22 ; Metatarsalgia, left foot M77.42 ; Metatarsalgia of right foot M77.41 ; Pain in right foot M79.671 and Left foot pain M79.672 [facility] [place] [address] [address] [place] [id number] 03/19/2025 YESIKA SNOOK Hallux rigidus, left foot [...] Insured Coverage Start Date Coverage End Date [facility] [address] [address] [place] [id number] ERASTO WEBB Self - patient is the insured Medical (General) History Medical History History ICD Code acid reflux Cancer GERD skin cancer hypertension
--- OUTSIDE RECORDS SUMMARY | 2025-07-17 10:19 | XMS_ITS | Encounter Summary ---
Author Organization [facility] Address [address] [place] [address] Care Team Providers Care Retanner Name Role Phone Yoni Molina MD Primary Care Provider [phone] Encounter Details Date Type Department Care Team (Late st Contact Info) Description 02/16/2018 Lab Requisition [facility] Care DermPath Lab [address] [facility] [place] [phone] Denny Santana MD [address] [place] [address] Social History Tobacco Use Types Packs/Day Years Used Date Smoking Tobacco: Former Smokeless Tobacco: Never Alcohol Use Standard Drinks/Week Comments Yes 0 (1 standard drink = 0.6 oz pur e alcohol) Sex and Gender Information Value Date Recorded Sex Assigned at Not on file Legal Sex Male 5:16 PM INFORMATION OFFICER Gender Identity Not on file Sexual Orientation Not on file documented as of this encounter Plan of Treatment Not on file documented as of this encounter Procedures Procedure Name Priority Date/Time Associated Diagnosis Comments DERMATOPATHOLOGY Routine 02/15/2018 12:0 0 AM CDT documented in this encounter Results * DERMATOPATHOLOGY (02/15/2018 12:00 AM CDT) Case Report Dermatopathology Report Case: [id number] Authorizing Provider: Denny Santana MD Collected: 02/15/2018 12:00 AM Pathologist: Mónica Corona MD Received: 02/16/2018 12:22 PM Specimens: A) - Skin, left mid back B) - Skin, right lateral mid back 4:58 PM [facility] DERMATOPATHOLOGY LABORATORY Final Diagnosis Specimen A. SKIN, [...] specimen consists of a shave biopsy measuring [id number], the margin is inked green. Jar 0. Specimen B: Received is one formalin filled container labeled with the patient's name and designated right lateral mid back. The specimen consists of a shave biopsy measuring [id number], the margin is inked green. Jar 0. [...] characteristic determined by the Dermatopathology Laboratory at [facility]. These tests need not be, and therefore are not, approved by the [place] Food and Drug Administration. The tests are used for clinical purposes. Billing Codes Specimen Charges Stain Charges 73634 29933 1 1 87605 1 8 4:58 PM CDT DERMATOPATHOLOGY LABORATORY Embedded Images 8 4:58 PM CDT DERMATOPATHOLOGY LABORATORY Pathology/Cytology TISSUE SPECIMEN FROM SKIN / Unknown 02/15/2018 02/16/2018 12:22 PM CDT Miscellaneous samples (specimen) TISSUE SPECIMEN FROM SKIN / Unknown 02/15/2018 02/16/2018 12:22 PM CDT Denny Santana MD LAB - PATHOLOGY/CYTOLOGY ORD ERABLES Final Result DERMATOPATHOLOGY LABORATORY [facility] - Department of Dermatology [address] [facility], 5th Floor Lab B [address] [phone] documented in this encounter Visit Diagnoses Not on filedocumented in this encounter Care Teams Retanner Relationship Specialty Start Date End Date Yoni Molina MD [address] [place] [address] PCP - General 04/07/17 documented as of this encounter
--- OUTSIDE RECORDS SUMMARY | 2025-07-17 10:19 | XMS_ITS | Encounter Summary ---
Author Organization [facility] Address [address] [place] [address] Care Team Providers Care Police Chief Name Role Phone Yoni Molina MD Primary Care Provider [phone] Encounter Details Date Type Department Care Team (Late st Contact Info) Description 01/01/2022 Lab Requisition [facility] Care DermPath Lab [address] [facility] [place] [phone] Denny Santana MD [address] [place] [address] Social History Tobacco Use Types Packs/Day Years Used Date Smoking Tobacco: Former Smokeless Tobacco: Never Alcohol Use Standard Drinks/Week Comments Yes 0 (1 standard drink = 0.6 oz pur e alcohol) Sex and Gender Information Value Date Recorded Sex Assigned at Not on file Legal Sex Male 5:16 PM PROCESS DEVELOPER Gender Identity Not on file Sexual Orientation Not on file documented as of this encounter Plan of Treatment Not on file documented as of this encounter Procedures Procedure Name Priority Date/Time Associated Diagnosis Comments DERMATOPATHOLOGY Routine 12/31/2021 12:0 0 AM CDT documented in this encounter Results * DERMATOPATHOLOGY (12/31/2021 12:00 AM CDT) Case Report Dermatopathology Report Case: [id number] Authorizing Provider: Denny Santana MD Collected: 12/31/2021 12:00 AM Ordering Location: [facility] DermPath Lab Received: 01/01/2022 11:50 AM [...] specimen consists of a shave removal measuring [id number]. Jar 0. 2 3:53 PM CDT DERMATOPATHOLOGY [...] characteristic determined by the Dermatopathology Laboratory at [facility], directed by Dr. Francisco Corona. These tests need not be, and therefore are not, approved by the [place] Food and Drug Administration. The tests are used for clinical purposes. Billing Codes Specimen Charges Stain Charges 30377 1 2 3:53 PM CDT DERMATOPATHOLOGY LABORATORY Embedded Images 2 3:53 PM CDT DERMATOPATHOLOGY LABORATORY Pathology/Cytolog y TISSUE SPECIMEN FROM SKIN / Unknown 12/31/2021 01/01/2022 11:50 AM CDT us Denny Santana MD LAB - PATHOLOGY/CYTOLOGY ORD ERABLES Final Result DERMATOPATHOLOGY LABORATORY [facility] - Department of Dermatology [address] [phone] documented in this encounter Visit Diagnoses Not on filedocumented in this encounter Care Teams Police Chief Relationship Specialty Start Date End Date Yoni Molina MD [address] [place] [address] PCP - General 04/07/17 documented as of this encounter
--- OUTSIDE RECORDS SUMMARY | 2025-07-17 10:19 | XMS_ITS | Clinical Summary ---
Author Organization [facility] Address [address] [place] [address] Care Team Providers Care Electrician Wiring Name Role Phone Harleen George Primary Care Provider [phone] Allergies No known active allergies Medications atorvastatin [...] (10/06/2021): Added automatically from request for surgery [id number] Esophageal stricture 10/06/2021 Overview (10/06/2021): Added automatically from request for surgery [id number] Resolved Problems Problem Noted Date Diagnosed Date [...] CDT Gender Identity Male 10/09/2021 9:37 AM MUTUAL FUND MANAGER Sexual Orientation Not on file Last Filed [...] (2 - 2024-2 6 season) 2025 06/20/2021 Influenza Adult (#1) 2025 07/08/2018 RSV Immunization or 60+ Years (1 - 1-dose 75+ series) 2027 DTaP, Tdap and Td Vaccines ( 2 - Td or Tdap) 06/05/2029 06/05/2019 Colorectal Cancer Screening Colonoscopy (10 Years) 06/30/2034 06/30/2024 Pneumococcal Vaccine: 50+ Years Completed 06/05/2019, 02/21/2018 PHQ-2 (Physician Dell) Completed 01/15/2025 Hepatitis A Vaccines Aged Out No long er eligible based on patient's age to complete this topic Meningococcal B Vaccine Aged Out No l onger eligible based on patient's age to complete this topic Meningococcal Vaccine Aged Out No hayde jordin eligible based on patient's age to complete this topic RSV Immunizations Under 20 Months Aged Out No longer eligible b ased on patient's age to complete this topic Insurance [facility] MEDICARE Care Teams Electrician Wiring Relationship Specialty Start Date End Date Halreen George DO [address] [place] [address] PCP - General FAMILY PRACTICE 05/02/20
--- OUTSIDE RECORDS SUMMARY | 2025-07-17 10:19 | XMS_ITS | Encounter Summary ---
Author Organization [facility] Address [address] [facility] [place] [address] Care Team Providers Care Tanker Truck Driver Name Role Phone Yoni Molina MD Primary Care Provider [phone] Encounter Details Date Type Department Care Team (Late st Contact Info) Description 09/15/2018 Lab Requisition [facility] Care DermPath Lab [address] [facility] [place] [phone] Denny Santana MD [address] [place] [address] Social History Tobacco Use Types Packs/Day Years Used Date Smoking Tobacco: Former Smokeless Tobacco: Never Alcohol Use Standard Drinks/Week Comments Yes 0 (1 standard drink = 0.6 oz pur e alcohol) Sex and Gender Information Value Date Recorded Sex Assigned at Not on file Legal Sex Male 5:16 PM INSURANCE RISK MANAGER Gender Identity Not on file Sexual Orientation Not on file documented as of this encounter Plan of Treatment Not on file documented as of this encounter Procedures Procedure Name Priority Date/Time Associated Diagnosis Comments DERMATOPATHOLOGY Routine 09/14/2018 12:0 0 AM INSURANCE RISK MANAGER documented in this encounter Results * DERMATOPATHOLOGY (09/14/2018 12:00 AM INSURANCE RISK MANAGER) Case Report Dermatopathology Report Case: [id number] Authorizing Provider: Denny Santana MD Collected: 09/14/2018 12:00 AM Pathologist: Kelle Watkins MD Received: 09/15/2018 12:02 PM Specimens: A) - Skin, right upper breast B) - Skin, left upper breast 2:06 PM [facility] DERMATOPATHOLOGY LABORATORY Final Diagnosis Specimen A. SKIN, right upper breast: LENTIGINOUS MELANOCYTIC NEVI, COMPOUND TYPE, IRRITATED (COMPOUND MELANOCYTIC NEVI WITH ARCHITECTURAL DISORDER) (D22.5) (see microscopic description and comment) Specimen B. SKIN, left upper breast: LENTIGINOUS MELANOCYTIC NEVUS, COMPOUND TYPE, IRRITATED (COMPOUND MELANOCYTIC NEVUS WITH ARCHITECTURAL DISORDER) (D22.5) CHRONIC PERIFOLLICULITIS (L73.8) (see microscopic description) 2:06 PM [facility] DERMATOPATHOLOGY LABORATORY at [address] [facility] Clinical History A-B: R/O dys nevus. 2:06 PM [facility] DERMATOPATHOLOGY LABORATORY Gross Description Specimen A: Received is one formalin filled container labeled with the patient's name and designated right upper breast. The specimen consists of a shave biopsy measuring [id number]. Jar 0. Specimen B: Received is one formalin filled container labeled with the patient's name and designated left upper breast. The specimen consists of a shave biopsy measuring [id number]. Jar 0. 2:06 PM [facility] DERMATOPATHOLOGY LABORATORY Microscopic Description Specimen A. [...] Original and deeper sections were reviewed. (Compound Edrrick's Nevus or Compound Dysplastic Nevus) There is also show a perifollicular lymphohistiocytic infiltrate. 9 2:06 PM [facility] DERMATOPATHOLOGY LABORATORY Disclaimer An external and internal positive and negative controls are appropriate for the histochemical, immunohistochemical and immunofluorescence stain(s) in this case (if any), except where stated explicitly. The performance characteristics of the stain(s) cited in this report were developed and its performance characteristic determined by the Dermatopathology Laboratory at [facility]. These tests need not be, and therefore are not, approved by the [place] Food and Drug Administration. The tests are used for clinical purposes. Billing Codes Specimen Charges Stain Charges 00715 75129 1 1 47675 20875 1 1 9 2:06 PM [facility] DERMATOPATHOLOGY LABORATORY Embedded Images 9 2:06 PM [facility] DERMATOPATHOLOGY LABORATORY Pathology/Cytology TISSUE SPECIMEN FROM SKIN / Unknown 09/14/2018 09/15/2018 12:02 PM INSURANCE RISK MANAGER Miscellaneous samples (specimen) TISSUE SPECIMEN FROM SKIN / Unknown 09/14/2018 09/15/2018 12:02 PM INSURANCE RISK MANAGER us Denny Santana MD LAB - PATHOLOGY/CYTOLOGY ORD ERABLES Final Result DERMATOPATHOLOGY LABORATORY [facility] - Department of Dermatology [facility] [facility], 5th Floor Lab B [address] [phone] documented in this encounter Visit Diagnoses Not on filedocumented in this encounter Care Teams Tanker Truck Driver Relationship Specialty Start Date End Date Yoni Molina MD [address] [place] [address] PCP - General 04/07/17 documented as of this encounter
--- OUTSIDE RECORDS SUMMARY | 2025-07-17 10:19 | XMS_ITS | Clinical Summary ---
Author Organization [facility] [employer] Address [address] [place] [address] Care Team Providers Care Copper Etcher Name Role Phone Yoni Molina MD Primary Care Provider [phone] Source Comments [facility] [employer],non-owned Affiliates and Associated Physician Practices is amultiple site organization consisting of ambulatory clinics and hospital sitesin [place], [place], [place]. This disclosure is being madepursuant to the Care Everywhere program and may not contain all information available regarding this patient. Last updated 18.[facility] [employer] Medications * Be aware that medications may [...] on file Legal Sex Male 5:16 PM COOLER DELIVERER Gender Identity Not on file Sexual Orientation Not on file Last Filed Vital Signs Vital Sign Reading Time Taken Comments Blood Pressure 158/90 08/10/2017 2:17 PM COOLER DELIVERER Pulse 56 08/10/2017 2:17 PM COOLER DELIVERER Temperature - - Respiratory Rate - - Oxygen Saturation 98% 08/10/2017 2:17 PM COOLER DELIVERER Inhaled Oxygen Concentration - - Weight 94.3 kg (208 lb) 08/10/2017 1:11 PM COOLER DELIVERER Height 180.3 cm (5' 11) 08/10/2017 1:11 PM COOLER DELIVERER Body Mass Index 29.01 08/10/2017 1:11 PM COOLER DELIVERER Plan of Treatment Health Maintenance Due Date [...] patient's age to complete this topic Insurance [facility] MEDICARE ADV Care Teams Copper Etcher Relationship Specialty Start Date End Date Yoni Molina MD [address] [place] [address] PCP - General 04/07/17
--- OUTSIDE RECORDS SUMMARY | 2025-07-17 10:19 | XMS_ITS | Encounter Summary ---
Author Organization [facility] Address [address] [place] [id number] Care Team Providers Care Storekeeper Steward Name Role Phone Harleen George DO Primary Care Provider [phone] Encounter Details Date Type Department Care Team (Latest Contact Info) Description 01/28/2023 [facility]ctors Message Enc [facility] - [address], [address] [place] [address] [place], [facility] Provider follow up appointment Social History [...] CDT Gender Identity Male 10/09/2021 9:37 AM DIE SET UP WORKER Sexual Orientation Not on file documented as of this encounter Plan of Treatment Not on file documented as of this encounter Visit Diagnoses Not on filedocumented in this encounter Additional Health Concerns Assessment Noted Time PHQ-9 Depression Total Score: 0 10/03/19 22 3:11 PM DIE SET UP WORKER documented as of this encounter Care Teams Storekeeper Steward Relationship Specialty Start Date End Date Harleen George DO [address] [place] [address] PCP - General FAMILY PRACTICE 05/02/20 documented as of this encounter
--- NOTE | 2025-08-07 16:30 | WPDSLEEPSTUD ---
Sleep Study Date of Study: 07/17/25 Ordering Provider: Harleen George DO Interpreting Physician: Melissa Tomlinson MD Sleep Study Type: Split Polysomnogram Height: 1.8 m Weight: 97.976 kg Body Mass Index: 30.1 Neck Circumference (inches): 18 [place]: 10 Reason for Sleep Study Hypersomnolence Sleep History Sebastien Mohamud is a 74-year-old man with loud snoring and grinding his teeth. He was prescribed a mouth guard by marlena Gould which he used for 40 years. His doctor suggested sleeping on his left side. His has noticed that he now has stopped breathing during sleep. This occurs usually in the 1st 1-4 hours of the night but he also snores. The next 3-4 hours he does not snore or have as many issues but also does not sleep very well. He may sleep for an hour and then wake up. There is a family history of sleep disorders, his youngest son age 35 has narcolepsy, and his father snores and also grinds his teeth. He rarely awakens from sleep feeling short of breath. He rarely wakes at night with heartburn, belching or coughing.??He constant snores, and it is always loud enough that others complain. He occasionally has trouble sleeping when he has a cold. He rarely wakes up gasping for breath during the night. He frequently has breathing problems at night witnessed by his . He rarely sweats excessively at night. He rarely notices his heart pounding or beating irregularly during the night. He rarely falls asleep during the day. He rarely falls asleep involuntarily, rarely falls asleep while driving. He never experiences loss of muscle tone with strong emotion. He rarely has daytime difficulty at work due to excessive sleepiness. He never feels paralyzed on waking or falling asleep. He rarely experiences vivid dreams upon waking or falling asleep. He never feels afraid of going to sleep. He rarely has nightmares. He occasionally recalls his dreams. He rarely has thoughts racing through his mind. He never feels sad or depressed. He occasionally feels anxiety. He rarely notices parts of his body jerk. He never kicks during the night. He rarely feels crawling or aching feelings in his legs. He rarely feels leg pain at night. He occasionally has morning jaw pain, frequently grinds his teeth at night. He rarely feels bothered by pain during the day, rarely is awakened by pain during the night. He rarely wakes up feeling stiff in the morning, and he rarely wakes feeling sore or achy. He occasional awakens with pain in his neck, spine, or joints. Normal bedtime is 10 30 or 11:00 p.m., falling asleep within 5-10 minutes, waking 1 or 2 times at night to go to the bathroom. He is usually able to return to sleep easily. Wake time is between 6 and 7:00 a.m. He typically gets between 7 and 8 hours of sleep per night. He generally does not take naps in the afternoon or evening, however short 10-15 minute nap may be refreshing. He feels better in the afternoon compared to other times of day. Habits:??Tobacco:never smoker Caffeine: 2-3 cups of coffee or tea daily Alcohol: 2-4 beers, or 2 glasses of wine, 6 oz each Recreational substances: none PMFSH Past Medical History Medical History (Updated 08/07/25 @ 16:58 by Melissa Tomlinson MD) GERD (gastroesophageal reflux disease) Metabolic syndrome Mixed hyperlipidemia Hypertension Bunion of great toe Hepatitis C antibody test negative (05/08/17) Surgical History Surgical History H/O foot surgery (~01/2016) History of carpal tunnel surgery (~2008) Family History Family History (Updated 08/07/25 @ 16:45 by Melissa Tomlinson MD) Grandparent Diabetes mellitus Family history of dementia Father Family history of elevated blood lipids Patient's father is , Onset Age: 90 Mother Family history of elevated blood lipids Patient's mother is , Onset Age: 88 Family history of dementia Son Narcolepsy Social History Social History Social History: Caffeine-coffee Smoking status: Never smoker Second hand tobacco smoke exposure: No Alcohol intake: current Drinks per week: 20 Substance use: never Substance use type: does not use Lack of Transportation: No Lack of Food: Never True Current Housing: I Have Housing Concerned About Future Housing: No Difficulty Paying Gas/Electric Bills: No Difficulty Paying for Meds: No Currently Unemployed: No Education: Associate Degree Difficulty w/ Childcare or Family Care: No Medications Home Medications ?Medication ?Instructions ?Recorded ?Confirmed ?Type lisinopril 10 mg tablet 10 mg PO DAILY #90 tabs 02/14/25 06/22/25 Rx tizanidine 4 mg tablet See Rx Instructions .Route 03/23/25 06/22/25 Rx .COMPLEX #90 tabs esomeprazole magnesium 40 mg 40 mg PO DAILY #90 caps 04/30/25 06/22/25 Rx capsule,delayed release (Nexium) atorvastatin 20 mg tablet (Lipitor) 20 mg PO QHS #90 tabs 06/22/25 06/22/25 Rx Sleep Procedure A split night polysomnogram using the Bucky Box multi-channel system recorded the standard physiologic parameters including EEG, EOG, submentalis EMG, anterior tibialis EMG, EKG, body position, nasal and oral airflow using nasal pressure sensor and thermistor. Respiratory parameters of chest and abdominal movements were recorded with Respiratory Inductance Plethysmography belts. Oxygen saturation was recorded by pulse oximetry. Video monitoring was also performed. Sleep stages, periodic limb movements, and EEG arousals were scored in 30 second epochs according to the criteria of the AASM Scoring Manual. The Apnea-Hypopnea Index was calculated using CMS guidelines for definition of hypopnea while scoring respiratory events. he did not take a sleep aid at the start of the study, and he wore his mouth guard during testing. After the baseline portion the patient met criteria for a titration with an AHI of 27.4 and desaturation to 70%. He used a medium [place] and Paykel Solo nasal mask, initial pressure was CPAP 5, titrated to CPAP 6, final pressure was CPAP 7. At CPAP 7, the patient spent 133.5 minutes in bed, 60.5 minutes awake, 50 minutes in non-REM and 23 minutes in REM. Sleep efficiency was low 54.7% but this is about average for the entire night. His apnea-hypopnea index was 0.8, lowest saturation was 93%. He had REM in the left lateral position. He had limited sleep in the supine position. Most of the night when he was supine, he was awake. Sleep Architecture During the diagnostic portion of the study, the total recording time was 240.9 minutes. The total sleep time was 125.0 minutes. Sleep latency was 1.9 minutes. REM latency was 134.5 minutes. Sleep Efficiency was 51.9%. The patient had 15 awakenings for an awakening index of 7.2. Wake after sleep onset time was 114.0 minutes. The patient spent 9.0 minutes, 7.2% of total sleep time in Stage N1. The patient spent 96.0 minutes, 76.8% in Stage N2. The patient spent 10.0 minutes, 8.0% in Stage N3. The patient spent 10.0 minutes, 8.0% in Stage REM sleep. At 02:32:00 AM the patient was placed on PAP treatment. During the treatment portion of the study, the total recording time was 220.2 minutes. The total sleep time was 109.5 minutes. Sleep latency was 30.5 minutes. REM latency was 35.0 minutes. Sleep Efficiency was 49.7%. Wake after Sleep Onset time was 80.5 minutes. The patient spent 12.5 minutes, 11.4% of total sleep time in Stage N1. The patient spent 71.0 minutes, 64.8% in Stage N2. The patient spent no time in Stage N3. The patient spent 26.0 minutes, 23.7% in Stage REM. Respiratory Analysis During the diagnostic portion of the study, the patient had 34 hypopneas, 5 obstructive apneas, no mixed apneas, and 18 central apneas for an overall Apnea Hypopnea Index of 27.4 events per hour. The REM Apnea Hypopnea Index was 24.0. The NREM Apnea Hypopnea Index was 27.7. The patient had a Central Apnea Hypopnea Index of 8.6. The supine apnea hypopnea index was 43.2, the nonsupine apnea-hypopnea index was 7.6. This is consistent with positional apnea and he should avoid sleeping on his back. There were no Respiratory Effort Related Arousals. The Respiratory Disturbance Index is 29.3 events per hour. There was no evidence of Merrick-Griffin Respirations. During the treatment portion of the study, the patient had 2 hypopneas, 1 obstructive apnea, no mixed or central apneas for an overall Apnea Hypopnea Index of 1.6 events per hour. The REM Apnea Hypopnea Index was 0. The NREM Apnea Hypopnea Index was 2.2. The patient had a Central Apnea Hypopnea Index of 0. There were no Respiratory Effort Related Arousals. The Respiratory Disturbance Index is 3.3 events per hour. There was no evidence of Merrick-Griffin Respirations. Arousals During the diagnostic portion of the study, there were a total of 46 arousals for an arousal index of 22.1. There were 18 respiratory arousals for an index of 8.6. There were 6 periodic limb movement arousals for an index of 2.9. There were 4 isolated limb movement arousals for an index of 1.9. There were 18 spontaneous arousals for an index of 8.6. During the treatment portion of the study, there were a total of 32 arousals for an index of 17.5. There was 1 respiratory arousal for an index of 0.5. There were no periodic limb movement arousals. There were 2 isolated limb movement arousals for an index of 1.1. There were 29 spontaneous arousals for an index of 15.9. Periodic Limb Movements During the diagnostic portion of the study, the patient had 6 isolated limb movements with an index of 2.9. The patient had 47 periodic limb movements with an index of 22.6. The patient had a total of 53 limb movements with a total limb movement index of 25.4. During the treatment portion of the study, the patient had 4 isolated limb movements with an index of 2.2. The patient had 4 periodic limb movements with an index of 2.2. The patient had a total of 8 limb movements with a total limb movement index of 4.4. Oximetry Data During the diagnostic portion of the study, the patient had an average oxygen saturation of 95.9% in wake with a minimum oxygen saturation of 70% and a maximum oxygen saturation of 99%. The patient had an average oxygen saturation of 92.9% in sleep with a minimum oxygen saturation of 70% and a maximum oxygen saturation of 97%. The patient had 57 oxygen desaturations resulting in an Oxygen Desaturation Index of 27.4. The patient spent 17.8 minutes, 7.5% of total sleep time with an oxygen saturation less than 88%. During the treatment portion of the study, the patient had an average oxygen saturation of 95.8% in wake with a minimum oxygen saturation of 90% and a maximum oxygen saturation of 99%. The patient had an average oxygen saturation of 95.6% in sleep with a minimum oxygen saturation of 91% and a maximum oxygen saturation of 98%. The patient had 6 oxygen desaturations resulting in an Oxygen Desaturation Index of 3.3. The patient spent no time with an oxygen saturation less than 88%. Snoring Profile During the diagnostic portion, snoring was mild to moderate, eliminated at the optimal pressure. Cardiac Profile During the diagnostic portion of the study, the EKG showed normal sinus rhythm. The average pulse rate was 52, minimum pulse rate was 45 bpm, maximum pulse rate was 76 bpm. No arrhythmias noted. During the treatment portion of the study, the EKG showed normal sinus rhythm. The average pulse rate was 51 bpm, minimum pulse rate was 46 bpm, maximum pulse rate was 78 bpm. No arrhythmias noted. EEG Profile Unremarkable, no evidence of seizures. Assessment and Plan Assessment and Plan (1) Obstructive sleep apnea: Code(s): G47.33 - Obstructive sleep apnea (adult) (pediatric) Status: Acute Assessment and Plan: This split night sleep study on 07/17/2025 shows moderate obstructive sleep apnea, the overall apnea-hypopnea index is 27.4 with desaturation to 70% and 17.8 minutes, 7.5% the baseline spent below 88%. He had [id number] snoring. He has a positional component, the supine apnea-hypopnea index is 43.2 on baseline compared to the nonsupine index of 7.6. He had mild elevation of central apneas with a central AHI of 8.6, all centrals were eliminated during the titration. He was successfully treated using medium [place] Solo nasal mask with heated humidity and an optimal pressure of CPAP 7 cm. At CPAP 7 cm, the patient spent 133.5 minutes in bed, 60.5 minutes awake, 50 minutes in non-REM and 23 minutes in REM. Sleep efficiency was low 54.7% but this was average for the entire night. At CPAP 7 cm, the apnea-hypopnea index was 0.8, lowest saturation was 93%, and he had REM in the left lateral position. He had limited sleep in the supine position. Most of the night when he was supine, he was awake. The patient should be prescribed this ResMed equipment as well as tubing, filters and reservoir. This should be used with all episodes of sleep. Compliance should be reviewed within 31-90 days of starting therapy for usage greater than 4 hours per night greater than 70% of the nights. The patient should be asked about symptoms such as excessive daytime sleepiness, quality of sleep, decreased nocturia, increased mental functioning such as memory, mood, and concentration. He used his mouth guard during this study. Obstructive sleep apnea can cause bruxism. Treating obstructive sleep apnea can reduce bruxism however he is accustomed to wearing a mouth guard and this is absolutely okay to use with CPAP. If he wishes to eliminate wearing the mouth guard, we could follow clinically, increase the CPAP to 8 cm and see how his jaws feel in the morning. This can be followed at his initial compliance visit by asking him about morning jaw pain. BMI is 30. Weight management is advised. Clinical data suggests that weight loss of 10% can reduce the severity of respiratory events and snoring and improve AHI by as much as 25%. Data The data obtained during this sleep study is adequate for interpretation. Certification This sleep study has been reviewed by a board certified sleep medicine physician.
[2025-08-07 16:49] VITALS: BMI 30.1
== END 2025-07-18 06:45 | disposition home or self-care (01) ==
PROVIDERS: PCP Family Medicine; Visit Provider Family Medicine
DX: G47.33 Obstructive sleep apnea (adult) (pediatric) (principal); G47.10 Hypersomnia, unspecified
CPT/HCPCS: 95811